=== PATIENT | male | born 1940 | race Caucasian/White ===

== ENCOUNTER 2020-02-18 14:02 | Outpatient (CLI) | payer MEDICARE, BC, SELFPAY ==
--- NOTE | ~2020-02-18 | CT_ITS ---
EXAMINATION: CTA chest DATE: 02/18/2020 14:41 INDICATION: Chest pain TECHNIQUE: Computed tomographic angiography (CTA) of the chest was performed without and with 100 mL Omnipque-350 intravenous contrast. Maximum intensity projection 3D-reconstructions of the aorta and o ther arteries were constructed by the technologist on a separate workstation. The dose-length product (DLP) was 860.12 mGy-cm. Automated exposure control and iterative reconstruction technique were empl oyed. COMPARISON: None. FINDINGS: There is calcified atherosclerosis of the aorta. No aortic dissection or aneurysm is identi fied. The pulmonary arteries are well-opacified. No pulmonary embolism is identified. The lungs are f ree of acute opacities. No pathologically enlarged thoracic lymph nodes are identified. The heart siz e is normal. A right internal jugular Port-A-Cath ends with its tip in the distal superior vena cava. There is no pleural effusion or pneumothorax. There are bridging osteophytes at multiple levels in t he spine, consistent with diffuse idiopathic skeletal hyperostosis (DISH). IMPRESSION: 1. Aortic atherosclerosis without aneurysm or dissection. 2. No pulmonary embolism. Reviewed, dictated and finalized at location A.
== END 2020-02-18 14:03 | disposition home or self-care (01) ==
PROVIDERS: PCP Student in an Organized Health Care Education/Training Program; Visit Provider Internal Medicine Hematology & Oncology
DX: R07.9 Chest pain, unspecified (principal); I70.0 Atherosclerosis of aorta
CPT/HCPCS: 71275; Q9967

== ENCOUNTER 2020-02-29 10:52 | Outpatient (CLI) | payer MEDICARE, BC, SELFPAY ==
[2020-02-29 11:22] LABS: Basophils Percent Auto 0.3 % (0.2-1.2); Eosinophils Absolute Auto 0.1 K/mm3 (0-0.3); Eosinophils Percent Auto 1.8 % (0-4.4); Hematocrit 38.3 % (42.0-52.0); Hemoglobin 12.6 g/dL (14.0-18.0); Immature Granulocyte Absolute 0.05 K/mm3 (0.00-0.031); Immature Granulocyte Percent A 0.8 % (0-0.5); Immature Platelet Fraction Pct 5.8 % (0.9-11.2); Lymphocytes Absolute Auto 0.64 K/mm3 (0.9-3.2); Lymphocytes Percent Auto 10.5 % (18.3-44.2); Mean Corpuscular HGB Conc 32.9 g/dl (32-36); Mean Corpuscular Hemoglobin 32.9 pg (26-34); Mean Platelet Volume 10.5 fl (7.4-10.4); Monocytes Absolute Auto 0.9 K/mm3 (0.1-0.6); Neutrophils Absolute Auto 4.4 K/mm3 (1.3-6.7); Neutrophils Percent Auto 71.6 % (45.5-73.1); Platelet Count Result 130 k/mm3 (150-375); Red Blood Count 3.83 M/mm3 (4.6-6.20); Red Cell Distribution Width 13.5 % (11.5-14.5); White Blood Count 6.1 K/mm3 (4.5-10.0)
[2020-02-29 12:15] LABS: Alanine Aminotransferase 25 U/L (4-50); Albumin Level 3.8 g/dL (3.5-5.1); Alkaline Phosphatase 71 U/L (38-126); Anion Gap 5 mmol/L (8-16); Aspartate Amino Transferase 24 U/L (17-59); Bilirubin,Total 0.6 mg/dL (0.2-1.3); Blood Urea Nitrogen 19 mg/dL (9-20); Calcium 9.6 mg/dL (8.4-10.2); Carbon Dioxide 28 mmol/L (22-30); Chloride 106 mmol/L (98-107); Estimated Glomerular Filt Rate 59; Glucose 109 mg/dL (75-110); Potassium 4.5 mmol/L (3.4-5.0); Sodium 139 mmol/L (137-145)
[2020-02-29 12:22] LABS: Immunoglobulin G 1736 mg/dL (700-1600)
[2020-02-29 12:30] LABS: Hemoglobin A1C 5.3 % (<5.7)
[2020-02-29 12:31] LABS: Immunoglobulin A < 40 mg/dL (70-400); Immunoglobulin M < 25 mg/dL (40-230)
[2020-03-03 22:19] LABS: Abnormal Protein Band 1 1.4 g/dL; Albumin 3.4 g/dL (3.8-4.8); Alpha 1 Globulin 0.3 g/dL (0.2-0.3); Alpha 2 Globulin 0.5 g/dL (0.5-0.9); Beta 1 Globulin 0.4 g/dL (0.4-0.6); Gamma Globulin 1.5 g/dL (0.8-1.7); Protein, Total 6.3 g/dL (6.1-8.1)
[2020-03-04 00:13] LABS: Lambda Light Chain 569.5 mg/L (5.7-26.3)
== END 2020-02-29 10:53 | disposition home or self-care (01) ==
PROVIDERS: PCP Student in an Organized Health Care Education/Training Program; Visit Provider Internal Medicine Hematology & Oncology
DX: R73.09 Other abnormal glucose (principal); C90.00 Multiple myeloma not having achieved remission
CPT/HCPCS: 36415; 80053; 82784; 83036; 83883; 84155; 84165; 85025; 85055; 86334

== ENCOUNTER 2020-06-09 09:22 | Outpatient (CLI) | payer MEDICARE, BC, SELFPAY ==
--- NOTE | 2020-06-09 | ECHO_ITS ---
Patient Info Name: Austin Soriano Age: 80 years : 1940 Gender: Male Ht: 70 in Wt: 190 lbs BSA: 2.08 m2 HR: 57 bpm BP: 164 / 82 mmHg Heart Rhythm: Sinus Rhythm Technical Quality: Good Exam Date: 06/09/2020 9:45 AM Exam Location: [facility] Pulmonary Patient Status: Outpatient Admit Date: 06/09/2020 Staff Ordering Physician: Abdi Bauman MD Material Specialist: Enrique Jeffrey RDCS, RT Attending Provider: Abdi Bauman MD Referring Physician: Chuck Lew MD; Exam Type: CA echo doppler color flow Study Info Indications C80.1 - Malignant (primary) neoplasm, unspecified Complete two-dimensional, color flow and Doppler transthoracic echocardiogram is performed. Strain analysis performed. Summary 1. Complete two-dimensional, color flow and Doppler transthoracic echocardiogram is performed. 2. Left ventricular systolic function is normal, estimated at 60-65%. 3. There is mildly increased left ventricular wall thickness. 4. The left ventricular diastolic function is grade I diastolic dysfunction. 5. Global longitudinal strain is normal at -19 %. 6. There is mild aortic valve stenosis with a peak velocity of 245 cm/s, mean gradient of 14 mmHg, and aortic valve area of 1.5 cm2. 7. There is moderate aortic valve calcification. 8. There is mild aortic valve regurgitation. 9. Unable to estimate PA systolic pressure due to poor spectral resolution of tricuspid regurgitant jet velocity. Left Ventricle Left ventricular chamber dimension is normal. Left ventricular systolic function is normal, estimated at 60-65%. There is mildly increased left ventricular wall thickness. The left ventricular diastolic function is grade I diastolic dysfunction. Global longitudinal strain is normal at -19 %. Right Ventricle Right ventricular chamber dimension is normal. Right ventricular systolic function is normal. Left Atria Left atrial chamber dimension is normal. Right Atria Right atrial chamber dimension is normal. Aortic Valve The aortic valve is probable trileaflet. There is mild aortic valve stenosis with a peak velocity of 245 cm/s, mean gradient of 14 mmHg, and aortic valve area of 1.5 cm2. There is mild aortic valve regurgitation. There is moderate aortic valve calcification. Pulmonic Valve The pulmonic valve is not well visualized. There is mild pulmonic regurgitation. Mitral Valve The mitral valve has normal leaflets. There is trace mitral valve regurgitation. The mitral valve annulus is mildly calcified. Tricuspid Valve The tricuspid valve leaflets are normal. There is trace tricuspid valve regurgitation. Unable to estimate PA systolic pressure due to poor spectral resolution of tricuspid regurgitant jet velocity. Pericardium/Pleural The pericardium appears normal. There is small pericardial effusion. Inferior Vena Cava Normal inferior vena cava with >50% collapse upon inspiration consistent with normal right atrial pressure, 5 mmHg. Aorta The aortic root size at the sinus of Valsalva is normal. There is mild aortic atherosclerosis. Left Ventricular Outflow Tract Name Value Normal LVOT 2D LVOT Diameter 2.3 cm LVOT Doppler
== END 2020-06-09 09:23 | disposition home or self-care (01) ==
PROVIDERS: PCP Student in an Organized Health Care Education/Training Program; Referring Provider Specialist; Visit Provider Internal Medicine Hematology & Oncology
DX: Z51.11 Encounter for antineoplastic chemotherapy (principal); I35.1 Nonrheumatic aortic (valve) insufficiency
CPT/HCPCS: 93306

== ENCOUNTER 2020-06-17 06:54 | Outpatient (NON) | payer MEDICARE, BC, SELFPAY ==
[2020-06-17 22:25] LABS: SARS-CoV-2 RNA PCR Negative
== END 2020-06-17 06:55 ==
LOC: ANHCOVIDDT 07:01
PROVIDERS: PCP Student in an Organized Health Care Education/Training Program; Visit Provider Student in an Organized Health Care Education/Training Program
DX: R06.02 Shortness of breath (principal); Z20.822 Contact with and (suspected) exposure to COVID-19
CPT/HCPCS: C9803; U0003; U0005

== ENCOUNTER 2020-07-06 10:40 | Outpatient (CLI) | payer MEDICARE, BC, SELFPAY | END 2020-07-06 10:41 | disposition home or self-care (01) | LOC: ANHLAB 10:45 | PROVIDERS: PCP Student in an Organized Health Care Education/Training Program; Visit Provider Student in an Organized Health Care Education/Training Program | DX: Z12.5 Encounter for screening for malignant neoplasm of prostate (principal) | CPT/HCPCS: 36415; 84153; G0103 ==

== ENCOUNTER 2020-07-18 14:57 | Outpatient (CLI) | payer MEDICARE, BC, SELFPAY ==
--- NOTE | ~2020-07-18 | XR_ITS ---
EXAMINATION: XR bone survey comp/metastic DATE: 07/18/2020 16:08 INDICATION: Myeloma not having achieved remission. TECHNIQUE: 29 views of a skeletal survey were obtained. COMPARISON: Skeletal survey 08/27/18 FINDINGS: There is a right internal jugular port with tip at superior cavoatrial junction. There are no lytic lesions of bone. IMPRESSION: 1. No evidence of multiple myeloma. Reviewed, dictated and finalized at location A. DYER
== END 2020-07-18 14:58 | disposition home or self-care (01) ==
LOC: ANHIMG 15:02
PROVIDERS: PCP Student in an Organized Health Care Education/Training Program; Visit Provider Internal Medicine Hematology & Oncology
DX: C90.00 Multiple myeloma not having achieved remission (principal)
CPT/HCPCS: 36415; 77075; 80048; 80053; 85025; 85055

== ENCOUNTER 2021-05-15 23:37 | Inpatient (IN) | payer MEDICARE, BC, SELFPAY ==
--- NOTE | ~2021-05-15 | XR_ITS ---
EXAMINATION: XR chest 1V portable DATE: 05/16/2021 04:47 INDICATION: COVID-19 pneumonia. Multiple myeloma. TECHNIQUE: A single frontal view of the chest was obtained. COMPARISON: Chest single view 03/05/2019, chest CT 02/18/2020 FINDINGS: There are airspace opacities in right mid and lower lung zones and left lower lung zone. No pleural effusion or pneumothorax. The heart size is normal. There is a right internal jugular port w ith tip at superior cavoatrial junction. IMPRESSION: 1. Airspace opacities in right mid and lower lung zones and left lower lung zone, consistent with COV ID-19 pneumonia. Reviewed, dictated and finalized at location A. ESTATE CLOSER IMPRESSION: 1. Airspace opacities in right mid and lower lung zones and left lower lung zon e, consistent with COVID-19 pneumonia.
--- NOTE | ~2021-05-15 | XR_ITS ---
EXAMINATION: XR chest 1V portable DATE: 05/23/2021 08:45 INDICATION: Fever TECHNIQUE: frontal view of the chest was obtained. COMPARISON: Chest radiograph and CT dated 05/21/2021 FINDINGS: No significant interval change in patchy airspace opacities throughout the right lung and in the left mid and lower lung zones consistent with pneumonia. Small right pleural effusion. No pneumothorax. T he cardiomediastinal silhouette is normal. Right internal jugular central venous port catheter with d istal tip at the caudal superior vena cava. IMPRESSION: 1. Unchanged patchy bilateral lung disease consistent with COVID pneumonia. 2. Small right pleural effusion. Reviewed, dictated and finalized at location A. FARMER
--- NOTE | ~2021-05-15 | XR_ITS ---
EXAMINATION: XR chest 1V portable DATE: 05/27/2021 07:07 INDICATION: Congestive heart failure. TECHNIQUE: A single frontal view of the chest was obtained. COMPARISON: Chest single view 05/26/2021, chest CT 05/21/2021 FINDINGS: There are airspace opacities in all lung zones bilaterally with relative sparing of left leila ng apex. There are small pleural effusions. No pneumothorax. The heart size is normal. There is a rig ht internal jugular port with tip at superior cavoatrial junction. IMPRESSION: 1. Stable diffuse lung disease, consistent with COVID-19 pneumonia. 2. Small pleural effusions. Reviewed, dictated and finalized at location A. T STOCKMAN
--- NOTE | ~2021-05-15 | US_ITS ---
US venous doppler [facility] DATE: 05/21/2021 08:58 INDICATION: Shortness of breath, chest pain TECHNIQUE: Real-time and color flow imaging and Doppler analysis of the lower extremity veins COMPARISON: None FINDINGS: The greater saphenous veins are patent. There is spontaneous and phasic flow and normal aug mentation and color flow signal and normal compression of the deep veins of both lower extremities. T he greater saphenous veins are patent. IMPRESSION: No evidence of deep venous thrombosis of the lower extremities Reviewed, dictated and finalized at Location A. Reviewed, dictated and finalized at location A. GE CONTROL ATTENDANT
--- NOTE | ~2021-05-15 | CT_ITS ---
EXAMINATION: CT brain wo con DATE: 05/17/2021 21:35 INDICATION: New onset confusion TECHNIQUE: Computed tomography (CT) of the head was performed without intravenous contrast. Sagittal and coronal reconstructions were performed. The mA was adjusted according to patient size. Iterative reconstruction technique was employed. The dose-length product was 681.00 mGy-cm. COMPARISON: None FINDINGS: No acute intracranial hemorrhage, acute infarction or abnormal extra axial fluid collection. There is moderate scattered white matter hypoattenuation consistent with chronic small vessel ischemic diseas e. Symmetric prominence of the sulci consistent with mild to moderate age-appropriate diffuse cerebra l volume loss. Ventricles are normal and symmetric. No mass/mass effect. Changes of bilateral intraoc ular lens replacement. Small right mastoid effusion. Mucosal thickening and scattered air-fluid level s throughout the paranasal sinuses. Intracranial calcified cerebral atherosclerosis is noted. IMPRESSION: 1. No acute intracranial process. 2. Age-related changes including mild to moderate diffuse volume loss and moderate scattered white ma tter hypoattenuation consistent with chronic small vessel ischemic disease. 3. Extensive sinus disease with multiple air-fluid levels throughout the paranasal sinuses. Correlate clinically for acute sinusitis. Reviewed, dictated and finalized at location . ICE DOG TRAINER IMPRESSION: 1. No acute intracranial process. 2. Age-related changes including mild to moderate diffuse volume loss and moder ate scattered white matter hypoattenuation consistent with chronic small vessel ischemic disease. 3. Extensive sinus disease with multiple air-fluid levels throughout the parana jeannette sinuses. Correlate clinically for acute sinusitis.
--- NOTE | ~2021-05-15 | CT_ITS ---
EXAMINATION: CTA chest PE protocol DATE: 05/21/2021 21:41 INDICATION: Shortness of breath. TECHNIQUE: Computed tomography angiography (CTA) of the chest was performed with 100 mL Omnipaque-350 intravenous contrast timed to evaluate the pulmonary arteries. Coronal maximum intensity projection 3D-reconstructions were created by the technologist. Automated exposure control and iterative reconst ruction technique were employed. The dose-length product was 568.57 mGy-cm. COMPARISON: Chest CT 02/18/2020, chest single view 05/21/2021 FINDINGS: There are patchy groundglass opacities and crazy paving involving all lobes. There are smal l pleural effusions. The heart size is normal. There are coronary artery calcifications. No pericardi al effusion. There is no pulmonary embolus. There is a right internal jugular port with tip in right atrium. There are bridging endplate osteophytes at multiple levels in the spine, consistent with diff use idiopathic skeletal hyperostosis (DISH). IMPRESSION: 1. No pulmonary embolus. 2. Diffuse lung disease, consistent with COVID-19 pneumonia. 3. Small pleural effusions. Reviewed, dictated and finalized at location B. CTOR OF HEAD START
--- NOTE | ~2021-05-15 | XR_ITS ---
EXAMINATION: XR chest 1V portable DATE: 05/26/2021 08:09 INDICATION: Shortness of breath. TECHNIQUE: A single frontal view of the chest was obtained. COMPARISON: Chest single view 05/23/2021 FINDINGS: There are airspace opacities in all lung zones bilaterally with relative sparing of left leila ng apex. No pleural effusion or pneumothorax. The heart size is normal. There is a right internal jug ular port with tip at superior cavoatrial junction. IMPRESSION: 1. Diffuse lung disease with mild worsening, consistent with COVID-19 pneumonia. Reviewed, dictated and finalized at location A. WORKER APPRENTICE IMPRESSION: 1. Diffuse lung disease with mild worsening, consistent with COVID-19 pneumonia .
--- NOTE | ~2021-05-15 | XR_ITS ---
XR chest 1V portable DATE: 05/21/2021 06:22 INDICATION: Pneumonia TECHNIQUE: Portable AP chest on 05/21/2021 at 0 614 and 0615 hours COMPARISON: 05/18/2021 portable AP chest FINDINGS: Prominent patchy consolidation is noted throughout the right lung and left mid and lower leila ng, increased in severity since 05/18/2021. Heart size appears normal. Aortic arch calcification. No pleural effusion is evident. Right Port-A-Cath catheter tip overlies the upper right atrium. IMPRESSION: Prominent bilateral pulmonary infiltrates, increased since 05/18/2021 Reviewed, dictated and finalized at location A. L FACE STONER AND POLISHER IMPRESSION: Prominent bilateral pulmonary infiltrates, increased since 05/18/20 21
--- NOTE | ~2021-05-15 | XR_ITS ---
EXAMINATION: XR chest 1V portable DATE: 05/18/2021 21:11 INDICATION: Chest pain TECHNIQUE: frontal view of the chest was obtained. COMPARISON: Chest radiograph dated 05/16/2021 FINDINGS: Right internal jugular central venous port catheter with distal tip at the caudal superior vena cava. Slight increase in patchy airspace opacities throughout the right lung relative early spurring the a pex and in the left mid and lower lung zones consistent with worsening COVID pneumonia. No pleural ef fusion or pneumothorax. The cardiomediastinal silhouette is normal. There are bridging osteophytes at multiple levels in the spine, consistent with diffuse idiopathic skeletal hyperostosis (DISH). IMPRESSION: 1. Mild interval progression in diffuse bilateral lung disease consistent with COVID pneumonia. Reviewed, dictated and finalized at location . UCE LABORER
[2021-05-15 23:40] VITALS: BP 125/61; PULSE 100; RESP 20; TEMP 36.9; O2SAT 96
[2021-05-16] VITALS (11 sets, daily range): BP systolic 96–151; BP diastolic 48–96; PULSE 70–125; RESP 14–20; TEMP 36.6–38.3; O2SAT 94–100; BMI 24.2
--- NOTE | 2021-05-16 04:36 | ED.FEVER ---
HPI - Fever General Chief Complaint: Fever Stated Complaint: fever, covid+ 05/08 Time Seen by Provider: 05/16/21 04:32 Source: patient Mode of arrival: ambulatory Limitations: no limitations History of Present Illness HPI Narrative: Patient is an 81-year-old male complaining of fever, cough, body aches, fatigue, shortness of breath x1 week but worse the past 2 days. Patient states that he was diagnosed with Covid 7 days ago. Related Data Home Medications Medication Instructions Recorded Confirmed acetaminophen 650 mg PO Q4H PRN 03/10/19 07/07/20 aspirin 81 mg PO DAILY 03/10/19 07/07/20 atorvastatin 40 mg PO DAILY 03/10/19 07/07/20 bortezomib 2.5 mg SUBCUT WEEKLY 03/10/19 07/07/20 cyclobenzaprine 10 mg PO Q12H PRN 03/10/19 07/07/20 denosumab 120 mg SUBCUT ONCE 03/10/19 07/07/20 diphenhydramine HCl 25 mg PO Q6H PRN 03/10/19 07/07/20 hydrocodone-acetaminophen 1 tablet PO Q6H PRN 03/10/19 07/07/20 metoprolol tartrate 25 mg PO BID 03/10/19 07/07/20 multivitamin with iron 1 tablet PO DAILY 03/10/19 07/07/20 omeprazole 40 mg PO DAILY 03/10/19 07/07/20 ondansetron 8 mg PO Q6H PRN 03/10/19 07/07/20 prednisolone acetate [Pred Forte] 2 drp OPHTHALMIC (EYE) Q12H 06/15/19 07/07/20 potassium chloride 20 meq PO DAILY 07/06/19 07/07/20 acyclovir 400 mg PO BID 09/14/19 07/07/20 sulfamethoxazole-trimethoprim 1 tablet PO Q12H 09/14/19 07/07/20 [Bactrim DS] Calcium 500 With D 500 mg BYMOUTH UD DOSE PK 01/05/20 07/07/20 alprazolam 0.25 mg PO BID PRN 01/05/20 07/07/20 tamsulosin 0.4 mg PO HS 03/09/20 07/07/20 Allergies Allergy/AdvReac Type Severity Reaction Status Date / Time lenalidomide Allergy Severe Rash Verified 05/16/21 05:21 Iodine and Iodide Containing Allergy Mild Itching Verified 05/16/21 05:21 Produc Review of Systems Review of Systems: All systems reviewed & are unremarkable except as noted in HPI and below Constitutional: Constitutional: Denies body ache(s), Denies chills, Denies excessive sweating, Denies fatigue, Denies headache(s), Denies lethargy, Denies malaise, Denies weakness and Denies weight loss Eyes: Eyes: Denies blurry vision, Denies change in vision and Denies loss of vision ENT: Denies dizziness, Denies ear discharge, Denies headache(s), Denies lip swelling, Denies epistaxis, Denies nasal congestion, Denies neck pain, Denies throat swelling and Denies tongue swelling Cardiovascular: Cardiovascular: Denies chest pain, Denies chest pain at rest, Denies chest pain with activity, Denies diaphoresis, Denies rapid heart rate, Denies edema, Denies irregular heart rhythm, Denies lightheadedness, Denies palpitations, Denies dyspnea and Denies dyspnea on exertion Respiratory: Respiratory: Denies chest congestion, Denies cough, Denies hemoptysis, Denies dyspnea and Denies dyspnea on exertion Gastrointestinal: Gastrointestinal: Denies abdominal pain, Denies melena, Denies hematochezia, Denies diarrhea, Denies nausea, Denies vomiting and Denies hematemesis Musculoskeletal: Musculoskeletal: Denies abnormal gait, Denies deformity, Denies joint swelling, Denies limited range of motion, Denies neck pain and Denies numbness Neurologic: Denies Abnormal speech present, Denies abnormal gait, Denies confusion, Denies dizziness, Denies headache(s), Denies focal weakness, Denies loss of vision, Denies numbness, Denies Other visual disturbances, Denies Sensory deficit (Neuro) and Denies weakness Psychiatric: Psychiatric: Denies confusion, Denies depression, Denies auditory hallucinations, Denies homicidal ideation and Denies suicidal ideation Endocrine: Endocrine: Denies cold intolerance, Denies excessive sweating, Denies fatigue, Denies heat intolerance and Denies palpitations Hematologic/Lymphatic: Hematologic/Lymphatic: Denies easy bleeding and Denies easy bruising Allergic/Immunologic: Allergic/Immunologic: Denies lip swelling, Denies throat swelling and Denies tongue swelling [facility] Family History Family History (Reviewed
[2021-05-16 05:22] LABS: Basophils Percent Auto 0.4 % (0.2-1.2); Eosinophils Absolute Auto 0.1 K/mm3 (0-0.3); Eosinophils Percent Auto 2.2 % (0-4.4); Hematocrit 29.6 % (42.0-52.0); Hemoglobin 9.5 g/dL (14.0-18.0); Immature Granulocyte Absolute 0.06 K/mm3 (0.00-0.031); Immature Granulocyte Percent A 1.1 % (0-0.5); Immature Platelet Fraction Pct 5.7 % (0.9-11.2); Lymphocytes Absolute Auto 1.69 K/mm3 (0.9-3.2); Lymphocytes Percent Auto 31.5 % (18.3-44.2); Mean Corpuscular HGB Conc 32.1 g/dl (32-36); Mean Corpuscular Hemoglobin 31.3 pg (26-34); Mean Corpuscular Volume 97.4 fl (80-100); Mean Platelet Volume 11.6 fl (7.4-10.4); Monocytes Absolute Auto 0.9 K/mm3 (0.1-0.6); Monocytes Percent Auto 17.2 % (2.6-8.5); Neutrophils Absolute Auto 2.6 K/mm3 (1.3-6.7); Neutrophils Percent Auto 47.6 % (45.5-73.1); Platelet Count Result 126 k/mm3 (150-375); Red Blood Count 3.04 M/mm3 (4.6-6.20); Red Cell Distribution Width 22.7 % (11.5-14.5); White Blood Count 5.4 K/mm3 (4.5-10.0)
[2021-05-16] MEDS: SODIUM CHLORIDE 0.9% IV 1,000 ML 999 ML IV CONT (05:22)
[2021-05-16 05:36] LABS: Add Urine Microscopic? YES; Appearance Urine Clear (Clear); Bilirubin Urine Negative (Negative); Blood Urine Negative (Negative); Color Urine Amber (Yellow); Glucose Urine UA Negative (Negative); Ketones Urine Negative (Negative); Leukocyte Esterase Ur Negative LEU/UL (Negative); Mucus Urine Rare /lpf; Nitrate Urine Negative (Negative); Protein Urine 3+ mg/dL (Negative); RBC Urine 0-2 /hpf (0-2); Specific Grav Ur 1.027 (1.001-1.035); Squamous Epithelial Cell Urine Rare /hpf (Few)
[2021-05-16 05:40] LABS: Lactic Acid Reflex 2.3 mmol/L (0.7-2.1)
[2021-05-16 05:41] LABS: Alanine Aminotransferase 24 U/L (4-50); Albumin Level 3.5 g/dL (3.5-5.1); Alkaline Phosphatase 90 U/L (38-126); Anion Gap 9 mmol/L (8-16); Aspartate Amino Transferase 41 U/L (17-59); Blood Urea Nitrogen 20 mg/dL (9-20); Calcium 7.9 mg/dL (8.4-10.2); Carbon Dioxide 22 mmol/L (22-30); Chloride 103 mmol/L (98-107); Estimated CRCL calculation 39 ml/min; Estimated Glomerular Filt Rate 49; Glucose 117 mg/dL (65-110); Sodium 134 mmol/L (137-145)
[2021-05-16 05:58] LABS: Anisocytosis 1+ (NORMAL); Burr Cells 1+ (NORMAL); Ovalocytes 2+ (NORMAL); Platelet Estimate Decreased (Adequate); Poikilocytosis 1+ (NORMAL)
[2021-05-16 06:00] LABS: Crenated RBC 1+ (NORMAL)
[2021-05-16] MEDS: ACETAMINOPHEN 325 MG TABLET 650 MG PO (07:21)
--- NOTE | 2021-05-16 07:54 | ADMGEN ---
This patient, Austin Soriano, was admitted to [address] [facility] Surg Room 312-01. Patient/family oriented to hospital policies and general routines including ID bracelet, bed and alarms, visiting hours, pain management, procedures, bathroom and other care routines, personal items, smoking policy, room service/diet, and visiting hours. Information on how to activate the Rapid Response Team has been discussed. Patient/Family are encouraged to report perceived risks to care and to ask questions if they do not understand what they are told or what they should do.
--- NOTE | 2021-05-16 08:08 | PM.IMHP ---
H&P: HPI History of Present Illness Date/Time: 05/16/21 08:08 Chief complaint: Fever. HPI: This is an 81-year-old gentleman with a past medical history including but not limited to COVID-19 pneumonia diagnosed 1 week ago status post admission at [facility] and discharged on 05/15/2021, multiple myeloma status post chemotherapy, hypertension, CAD status post stents, GERD who presented to the emergency department with complaints of chest tightness. The patient was in his usual state of health until 1 week ago. He was admitted to [facility] with a diagnosis of COVID-19 pneumonia. He never required any oxygen supplementation. He was treated with 5 day course of remdesivir with a loading does followed by 4 days of standard dose from May 08 through May 12. The patient complains of fever associated with cough, body aches, fatigue and shortness of breath for 1 week. While at [place] he was appropriately treated with remdesivir and exam it was on. He never required any oxygen supplementation. He was discharged yesterday but has not been feeling well at home so he returned to the emergency department. On arrival to the emergency department the patient is stable and afebrile with a temp of 36.9? C, pulse rate 100, respiration 20, blood pressure 125/61 and a pulse ox of 96% on room air. Basic labs were drawn. He CBC revealed a WBC of 5.4, hemoglobin 9.5, hematocrit 29.6 and a platelet count of 126. His chemistry shows a sodium of 134, potassium 4, chloride 103, bicarb 22, BUN 20, creatinine 1.4. Lactic acid was 2.3. Repeat level was 0.7. LFTs were within normal range with total bilirubin 1, AST 41, ALT 24, alkaline phosphatase 90. Total protein 6 and albumin 3.5. Patient was started on empiric antibiotic with cefepime single does. He underwent nebulizer treatment with albuterol and ipratropium. Lactated region was started at 125 cc/hour after 1 L bolus of normal saline. Hospital medicine service consulted for further management. Patient will be admitted for at least 2 midnights as inpatient. Chief Complaint: Fever, COVID-19. Review of Systems Review of Systems: All systems reviewed & are unremarkable except as noted in HPI and below PMFSH Family History Family History Sibling Family history of gastrointestinal disorder Cerebrovascular accident Malignant neoplasm of prostate Mother Cerebrovascular accident Family history of congestive heart failure Father Family history of congestive heart failure Social History Social History Smoking status: Never smoker Alcohol intake: never Substance use: never Spiritual care concerns: No Meds Home Medications and Allergies Home Medications Medication Instructions Recorded Confirmed Type acetaminophen 650 mg PO Q4H PRN 03/10/19 05/16/21 History aspirin 81 mg PO DAILY 03/10/19 05/16/21 History atorvastatin 40 mg PO DAILY 03/10/19 05/16/21 History cyclobenzaprine 10 mg PO TID PRN 03/10/19 05/16/21 History metoprolol tartrate 25 mg PO BID 03/10/19 05/16/21 History multivitamin with iron 1 tablet PO DAILY 03/10/19 05/16/21 History omeprazole 40 mg PO DAILY 03/10/19 05/16/21 History prednisolone acetate [Pred Forte] 2 drp OPHTHALMIC (EYE) Q12H 06/15/19 05/16/21 History acyclovir 400 mg PO TID 09/14/19 05/16/21 History sulfamethoxazole-trimethoprim 1 tablet PO QMWF 09/14/19 05/16/21 History [Bactrim DS] Calcium 500 With D 1,500 mg BYMOUTH TID 01/05/20 05/16/21 History alprazolam 0.25 mg PO TID PRN 01/05/20 05/16/21 History tamsulosin 0.4 mg PO HS 03/09/20 05/16/21 History benzonatate 100 mg PO TID 05/16/21 05/16/21 History gabapentin 300 mg PO TID 05/16/21 05/16/21 History lidocaine 1 patch TOPICAL Q12H 05/16/21 05/16/21 History lidocaine-prilocaine 1 applic TOPICAL DAILY 05/16/21 05/16/21 History loperamide [Imodium] 2 mg PO QID PRN 05/16/21 05/16/21 History ondansetron 4 mg PO TID
[2021-05-16 08:18] LABS: Reflex Lactic Acid Yes or No Add Lactic
[2021-05-16] MEDS: LACTATED RINGERS 1,000 ML 125 ML IV CONT ×3 (08:24→22:26)
[2021-05-16 10:50] LABS: Lactic Acid 0.7 mmol/L (0.7-2.1)
[2021-05-16] MEDS: BENZONATATE 100 MG CAPSULE PO (15:54)
[2021-05-16] MEDS: GABAPENTIN 300 MG CAPSULE PO ×2 (15:54→22:25)
[2021-05-16] MEDS: ACYCLOVIR 400 MG TABLET PO (15:54)
[2021-05-16] MEDS: ALBUTEROL SULFATE NEB 2.5 MG/0.5 ML INH 5 MG INHALATION (21:41)
[2021-05-16] MEDS: IPRATROPIUM BR 0.02% INH SOLN 0.5 MG/2.5 ML VIAL INHALATION (21:43)
[2021-05-16] MEDS: prednisoLONE ACETATE 1% OPHTH 5 ML 2 DROP EACH EYE (22:25)
[2021-05-16] MEDS: TAMSULOSIN HCL 0.4 MG CAPSULE PO (22:26)
[2021-05-17] VITALS (12 sets, daily range): BP systolic 111–174; BP diastolic 43–77; PULSE 68–131; RESP 16–22; TEMP 36.6–39.4; O2SAT 94–98
[2021-05-17] MEDS: ALBUTEROL SULFATE NEB 2.5 MG/0.5 ML INH 5 MG INHALATION ×3 (02:54→21:30)
[2021-05-17] MEDS: IPRATROPIUM BR 0.02% INH SOLN 0.5 MG/2.5 ML VIAL INHALATION ×3 (02:54→21:30)
[2021-05-17] MEDS: GABAPENTIN 300 MG CAPSULE PO ×3 (05:57→21:17)
[2021-05-17] MEDS: LACTATED RINGERS 1,000 ML 125 ML IV CONT ×2 (06:01→17:37)
[2021-05-17] MEDS: PANTOPRAZOLE 40 MG TABLET PO (09:24)
[2021-05-17] MEDS: BENZONATATE 100 MG CAPSULE PO ×3 (09:24→17:38)
[2021-05-17] MEDS: ATORVASTATIN 40 MG TABLET PO (09:24)
[2021-05-17] MEDS: THERAPEUTIC MULTIVITAMINS/MINERALS TAB (*BKC) 1 TABLET PO (09:24)
[2021-05-17] MEDS: prednisoLONE ACETATE 1% OPHTH 5 ML 2 DROP EACH EYE ×2 (09:24→21:16)
[2021-05-17] MEDS: ACYCLOVIR 400 MG TABLET PO ×3 (09:24→17:38)
[2021-05-17] MEDS: ASPIRIN 81 MG CHEWABLE TABLET PO (09:25)
--- NOTE | 2021-05-17 12:30 | PM.IMPN ---
Progress Note: A&P Assessment and Plan (1) COVID-19: Code(s): U07.1 - COVID-19 Status: Acute Assessment and Plan: Subacute COVID-19 infection, previously treated. 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 There is no indication for remdesivir and this patient are unclear. Patient is breathing comfortably on room air. He reports chest tightness. There may be prolong symptoms in patient recover in with COVID-19 pneumonia lasting 4 days to weeks or even months. Will encourage incentive spirometry. Will perform albuterol and ipratropium nebulization. Currently there is no indication for remdesivir and there would be no benefit from stay. (2) Pneumonia: Qualifiers: Laterality: unspecified laterality Lung location: unspecified part of lung Pneumonia type: due to unspecified organism Qualified Code(s): J18.9 - Pneumonia, unspecified organism Code(s): J18.9 - Pneumonia, unspecified organism Status: Acute Assessment and Plan: Status post treatment with remdesivir. Currently breathing comfortably on room air. Start augmentin. Bilateral opacities on chest x-ray. (3) Multiple myeloma not having achieved remission: Code(s): C90.00 - Multiple myeloma not having achieved remission Status: Acute Assessment and Plan: Status post chemotherapy with bortezomib. (4) Bone metastasis: Code(s): C79.51 - Secondary malignant neoplasm of bone Status: Acute Assessment and Plan: Pain management as stated. (5) Acute diarrhea: Code(s): R19.7 - Diarrhea, unspecified Status: Acute Assessment and Plan: A patient of the diarrhea may have been a recurrent issue. Sensitive due to recent antibiotic intake. Stop cefepime. Subjective Date/time seen: 05/17/21 10:59 S: Patient was seen and examined at the bedside. He reports diarrhea. No the toes there may be chronic. He had a fever overnight but is no longer febrile today. Patient remains breathing comfortably on room air. Reports improvement of chest tightness. Review of Systems Review of Systems: All systems reviewed & are unremarkable except as noted in HPI and below Exam Const: General: comfortable and no acute distress HENMT: General nose exam: no epistaxis Mouth: Yes moist mucous membranes Eyes: General: appearance normal, both eyes and all related structures Pupils: Equal, round and reactive pupils present EOM: EOMs intact bilaterally Neck: Neck: supple and no JVD Resp: Effort & Inspection: normal respiratory effort Auscultation: clear to auscultation bilaterally, no crackles, no rales and no rhonchi Cardio: Rate: regular rate and not bradycardic Rhythm: regular rhythm Heart sounds: no gallops, no murmurs and no rubs GI: Inspection: non-distended : Other: Deferred. Skin: General skin exam: normal color and no rashes or lesions noted Neuro: Cranial nerves: Yes Equal, round and reactive pupils present Cognition (Neuro): normal cognition Speech: normal speech Extrem: Other: No edema cyanosis or clubbing. Psych: Mental Status: mental status grossly normal Affect: normal affect Objective Data Vital Signs Vital Signs: Vital Signs - 24 hr 05/16/21 16:00 05/16/21 20:00 05/16/21 20:05 Temperature 98.6 F 98.6 F Pulse Rate 77 70 70 Respiratory Rate 15 18 18 Blood Pressure 126/68 130/55 L Pulse Oximetry 95 96 95 05/16/21 21:44 05/16/21 21:50 05/17/21 00:00 Temperature 98.4 F Pulse Rate 87 68 Respiratory Rate 16 Blood Pressure 126/61 Pulse Oximetry 95 98 05/17/21 04:00 05/17/21 08:00 05/17/21 10:03 Temperature 97.8 F 98.6 F Pulse Rate 108 H 80 84 Respiratory Rate 16 18 18 Blood Pressure 111/51 L 115/55 L Pulse Oximetry 96 95 05/17/21 10:13 05/17/21 12:00 Temperature 98.1 F Pulse Rate 85 88 Respiratory Rate 18 18 Blood Pressure 111/43 L Pulse Oximetry 94 96 Intake/Output Intake/Output: Intake & Output 05/14/21 12
[2021-05-17] MEDS: AMOXICILLIN/CLAVULANATE K 875-125 MG TAB 1 TABLET PO ×2 (14:16→21:16)
--- NOTE | 2021-05-17 16:02 | PCRCNOTE ---
Window of time for administration has passed. See next scheduled administration.
--- NOTE | 2021-05-17 20:26 | ECG_ITS ---
Measurements Intervals [place] Rate: 125 P: 56 [place]: 146 QRS: -7 QRSD: 92 T: 65 QT: 312 QTc: 451 Interpretive Statements SINUS TACHYCARDIA INCOMPLETE RIGHT BUNDLE BRANCH BLOCK BORDERLINE ST-T WAVE ABNORMALITY- ANTERIOR LEADS ABNORMAL ECG Electronically Signed On 05-18-2021 16:50:16 COMMUNITY DEVELOPMENT SPECIALIST by Fred Mcdonough D.O.
[2021-05-17 20:55] LABS: Alveolar/Arterial O2 Gradient 47.8 mmHg; Base Excess ABG -1.2 mEq/l (+/-2.0); Fractional Inspired Oxygen 21 %; HCO3 ABG 20.1 mEq/l (22.0-26.0); Oxygen Content ABG 14.9 %vol (16.0-22.0); Oxygen Saturation ABG 96.5 % (95.0-100.0); Oxyhemoglobin 94.2 % THb (90.0-100.0); PO2 ABG 73.2 mmHg (80.0-100.0); PO2 FiO2 Ratio Arterial Blood 3.49 %; Total Hemoglobin 11.2 g/dL (12.0-18.0)
[2021-05-17 20:58] LABS: Site Drawn RIGHT RADIAL
[2021-05-17 20:59] LABS: Device ROOM AIR; Modified Allen's Test Pass
[2021-05-17] MEDS: hydrALAZINE HCL 20 MG/ML VIAL 10 MG IV PUSH (21:03)
[2021-05-18] VITALS (18 sets, daily range): BP systolic 111–132; BP diastolic 57–72; PULSE 83–142; RESP 16–28; TEMP 36.3–39.4; O2SAT 93–95
[2021-05-18] MEDS: TAMSULOSIN HCL 0.4 MG CAPSULE PO ×2 (01:40→20:35)
[2021-05-18] MEDS: ACETAMINOPHEN 325 MG TABLET 650 MG PO ×4 (01:40→20:34)
[2021-05-18] MEDS: ALBUTEROL SULFATE NEB 2.5 MG/0.5 ML INH 5 MG INHALATION ×3 (02:21→20:00)
[2021-05-18] MEDS: IPRATROPIUM BR 0.02% INH SOLN 0.5 MG/2.5 ML VIAL INHALATION ×3 (02:21→20:00)
[2021-05-18] MEDS: LACTATED RINGERS 1,000 ML 125 ML IV CONT ×3 (03:03→20:33)
[2021-05-18] MEDS: GABAPENTIN 300 MG CAPSULE PO ×3 (05:46→22:40)
--- NOTE | 2021-05-18 08:36 | PC.NURSE ---
1948 Pt had a temp of 102.9 HR in the 130s & confused only oriented to self. rapid response called.
--- NOTE | 2021-05-18 10:57 | PCRCNOTE ---
Window of time for administration has passed. See next scheduled administration.
[2021-05-18] MEDS: prednisoLONE ACETATE 1% OPHTH 5 ML 2 DROP EACH EYE ×2 (11:06→20:35)
[2021-05-18] MEDS: ATORVASTATIN 40 MG TABLET PO (11:07)
[2021-05-18] MEDS: PANTOPRAZOLE 40 MG TABLET PO (11:07)
[2021-05-18] MEDS: AMOXICILLIN/CLAVULANATE K 875-125 MG TAB 1 TABLET PO ×2 (11:07→20:36)
[2021-05-18] MEDS: BENZONATATE 100 MG CAPSULE PO ×3 (11:07→18:34)
[2021-05-18] MEDS: ACYCLOVIR 400 MG TABLET PO ×3 (11:07→18:34)
[2021-05-18] MEDS: THERAPEUTIC MULTIVITAMINS/MINERALS TAB (*BKC) 1 TABLET PO (11:08)
[2021-05-18] MEDS: ASPIRIN 81 MG CHEWABLE TABLET PO (11:08)
--- NOTE | 2021-05-18 15:20 | PCOTNOTE ---
Per PT, RN advised not to see patient this am due to decline in medical status. Over night, patient presented with fever, confusion, and rapid response was called. Pt not seen for this reason.
--- NOTE | 2021-05-18 17:33 | PM.IMPN ---
Progress Note: A&P Assessment and Plan (1) COVID-19: Code(s): U07.1 - COVID-19 Status: Acute Assessment and Plan: Long haul COVID. Subacute COVID-19 infection, previously treated. 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 There is no indication for remdesivir and this patient are unclear. Patient is breathing comfortably on room air. He reports chest tightness. There may be prolong symptoms in patient recover in with COVID-19 pneumonia lasting 4 days to weeks or even months. Will encourage incentive spirometry. Will perform albuterol and ipratropium nebulization. Currently there is no indication for remdesivir and there would be no benefit from steroids. Continue symptomatic management with Tylenol p.r.n. and nebulization. (2) Pneumonia: Qualifiers: Laterality: unspecified laterality Lung location: unspecified part of lung Pneumonia type: due to unspecified organism Qualified Code(s): J18.9 - Pneumonia, unspecified organism Code(s): J18.9 - Pneumonia, unspecified organism Status: Acute Assessment and Plan: Status post treatment with remdesivir. Currently breathing comfortably on room air. Continue augmentin. Bilateral opacities on chest x-ray. Cefepime was stopped due to diarrhea. (3) Multiple myeloma not having achieved remission: Code(s): C90.00 - Multiple myeloma not having achieved remission Status: Acute Assessment and Plan: Status post chemotherapy with bortezomib. (4) Bone metastasis: Code(s): C79.51 - Secondary malignant neoplasm of bone Status: Acute Assessment and Plan: Pain management as stated. (5) Acute diarrhea: Code(s): R19.7 - Diarrhea, unspecified Status: Acute Assessment and Plan: Acute diarrhea may be recurrent issues per his daughter. Stop cefepime. Follow-up CT. Subjective Date/time seen: 05/18/21 16:33 S: The patient examined at the bedside. You reports persistent diarrhea and fever, despite Tylenol. C diff was ordered. IV antibiotics were stopped. Review of Systems Review of Systems: All systems reviewed & are unremarkable except as noted in HPI and below Constitutional: Constitutional: Reports fever(s) Gastrointestinal: Gastrointestinal: Reports diarrhea Exam Const: General: comfortable and no acute distress HENMT: General nose exam: no epistaxis Mouth: Yes moist mucous membranes Eyes: General: appearance normal, both eyes and all related structures Pupils: Equal, round and reactive pupils present EOM: EOMs intact bilaterally Neck: Neck: supple and no JVD Resp: Effort & Inspection: normal respiratory effort Auscultation: clear to auscultation bilaterally, no crackles, no rales and no rhonchi Cardio: Rate: regular rate and not bradycardic Rhythm: regular rhythm Heart sounds: no gallops, no murmurs and no rubs GI: Inspection: non-distended : Other: Deferred. Skin: General skin exam: normal color and no rashes or lesions noted Neuro: Cranial nerves: Yes Equal, round and reactive pupils present Cognition (Neuro): normal cognition Speech: normal speech Extrem: Other: No edema cyanosis or clubbing. Psych: Mental Status: mental status grossly normal Affect: normal affect Objective Data Vital Signs Vital Signs: Vital Signs - 24 hr 05/17/21 19:50 05/17/21 20:00 05/17/21 21:00 Temperature 102.9 F H Pulse Rate 120 H 131 H 88 Respiratory Rate 20 20 18 Blood Pressure 174/77 H Pulse Oximetry 95 95 05/17/21 21:10 05/17/21 21:59 05/18/21 02:25 Temperature 102.9 F H Pulse Rate 88 131 H 88 Respiratory Rate 18 20 18 Blood Pressure 174/77 H Pulse Oximetry 95 05/18/21 02:35 05/18/21 05:37 05/18/21 08:00 Temperature 101.0 F H 98.6 F Pulse Rate 88 120 H 104 H Respiratory Rate 18 20 20 Blood Pressure 111/59 L 112/64 Pulse Oximetry 95 94 05/18/21 12:00 05/18/21 13:08 05/18/21 13:16 Temperature 97.4 F L Pulse Rate 112 H 86 83
--- NOTE | 2021-05-18 20:45 | ECG_ITS ---
Measurements Intervals [place] Rate: 119 P: 62 [place]: 161 QRS: -44 QRSD: 93 T: 32 QT: 314 QTc: 443 Interpretive Statements SINUS TACHYCARDIA VENTRICULAR PREMATURE COMPLEX LEFT AXIS DEVIATION INCOMPLETE RIGHT BUNDLE BRANCH BLOCK BASELINE ARTIFACT- V1-V2 ABNORMAL ECG Electronically Signed On 05-19-2021 5:37:56 FLOW NURSE by Fred Mcdonough D.O.
[2021-05-18] MEDS: NITROGLYCERIN SL 0.4 MG TABLET SUBLINGUAL (21:01)
[2021-05-18] MEDS: FUROSEMIDE INJ 40 MG/4 ML VIAL IV PUSH (21:01)
[2021-05-18] MEDS: MORPHINE SULFATE (*CRX) 2 MG/ML INJ 1 MG IV PUSH (21:01)
[2021-05-18] MEDS: METOPROLOL TARTRATE 25 MG TABLET PO (22:40)
[2021-05-18] MEDS: ACETAMINOPHEN 650 MG SUPPOSITORY RECTAL (22:40)
[2021-05-19] VITALS (19 sets, daily range): BP systolic 118–151; BP diastolic 55–83; PULSE 101–145; RESP 20–24; TEMP 36.6–39.8; O2SAT 91–93
[2021-05-19 01:19] LABS: Troponin I 0.988 ng/mL (0.000-0.034)
[2021-05-19] MEDS: ALBUTEROL SULFATE NEB 2.5 MG/0.5 ML INH 5 MG INHALATION ×2 (02:50→08:51)
[2021-05-19] MEDS: IPRATROPIUM BR 0.02% INH SOLN 0.5 MG/2.5 ML VIAL INHALATION ×2 (02:51→08:51)
[2021-05-19] MEDS: ACETAMINOPHEN 325 MG TABLET 650 MG PO ×3 (03:52→23:28)
[2021-05-19 04:35] LABS: Troponin I 0.842 ng/mL (0.000-0.034)
[2021-05-19] MEDS: METOPROLOL TARTRATE 25 MG TABLET PO ×2 (05:11→23:53)
[2021-05-19] MEDS: GABAPENTIN 300 MG CAPSULE PO ×3 (05:11→22:32)
[2021-05-19] MEDS: ATORVASTATIN 40 MG TABLET PO (08:45)
[2021-05-19] MEDS: PANTOPRAZOLE 40 MG TABLET PO (08:46)
[2021-05-19] MEDS: ACYCLOVIR 400 MG TABLET PO ×3 (08:46→17:17)
[2021-05-19] MEDS: BENZONATATE 100 MG CAPSULE PO ×3 (08:46→17:17)
[2021-05-19] MEDS: AMOXICILLIN/CLAVULANATE K 875-125 MG TAB 1 TABLET PO ×2 (08:46→22:33)
[2021-05-19] MEDS: THERAPEUTIC MULTIVITAMINS/MINERALS TAB (*BKC) 1 TABLET PO (08:47)
[2021-05-19] MEDS: LIDOCAINE 5% PATCH 1 PATCH TOPICAL (08:47)
[2021-05-19] MEDS: ASPIRIN 81 MG CHEWABLE TABLET PO (08:47)
--- NOTE | 2021-05-19 11:33 | PCOTNOTE ---
On 05/19/21, the student, Yomaira Edmonds, provided care and completed [facility] documentation on this patient. I have reviewed the student's documentation and agree with the findings.
--- NOTE | 2021-05-19 15:13 | PM.IMPN ---
Progress Note: A&P Assessment and Plan (1) COVID-19: Code(s): U07.1 - COVID-19 Status: Acute Assessment and Plan: Long haul COVID. Subacute COVID-19 infection, previously treated. 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 There is no indication for remdesivir and this patient are unclear. Patient is breathing comfortably on room air. He reports chest tightness. There may be prolong symptoms in patient recover in with COVID-19 pneumonia lasting 4 days to weeks or even months. Will encourage incentive spirometry. Will perform albuterol and ipratropium nebulization. Currently there is no indication for remdesivir and there would be no benefit from steroids. Continue symptomatic management with Tylenol p.r.n. and nebulization. (2) Pneumonia: Qualifiers: Laterality: unspecified laterality Lung location: unspecified part of lung Pneumonia type: due to unspecified organism Qualified Code(s): J18.9 - Pneumonia, unspecified organism Code(s): J18.9 - Pneumonia, unspecified organism Status: Acute Assessment and Plan: Status post treatment with remdesivir. Currently breathing comfortably on room air. Continue augmentin. Bilateral opacities on chest x-ray. Cefepime was stopped due to diarrhea. (3) Multiple myeloma not having achieved remission: Code(s): C90.00 - Multiple myeloma not having achieved remission Status: Acute Assessment and Plan: Status post chemotherapy with bortezomib. (4) Bone metastasis: Code(s): C79.51 - Secondary malignant neoplasm of bone Status: Acute Assessment and Plan: Pain management as stated. (5) Acute diarrhea: Code(s): R19.7 - Diarrhea, unspecified Status: Acute Assessment and Plan: C diff negative Additional Plan 05/19/2021 Patient is slightly less symptomatic today. Will continue current plan of care and treatment. Possible discharge in next couple of days. Subjective Date/time seen: 05/19/21 15:13 Patient was seen during the morning rounds today. Patient is feeling slightly better. Decreased shortness of breath, no chest pain. Diarrhea is slightly better. No vomiting. Review of Systems Review of Systems: All systems reviewed & are unremarkable except as noted in HPI and below Constitutional: Constitutional: Reports fever(s) Gastrointestinal: Gastrointestinal: Reports diarrhea Exam Const: General: comfortable and no acute distress HENMT: General nose exam: no epistaxis Mouth: Yes moist mucous membranes Eyes: General: appearance normal, both eyes and all related structures Pupils: Equal, round and reactive pupils present EOM: EOMs intact bilaterally Neck: Neck: supple and no JVD Resp: Effort & Inspection: normal respiratory effort Auscultation: clear to auscultation bilaterally, no crackles, no rales and no rhonchi Cardio: Rate: regular rate and not bradycardic Rhythm: regular rhythm Heart sounds: no gallops, no murmurs and no rubs GI: Inspection: non-distended : Other: Deferred. Skin: General skin exam: normal color and no rashes or lesions noted Neuro: Cranial nerves: Yes Equal, round and reactive pupils present Cognition (Neuro): normal cognition Speech: normal speech Extrem: Other: No edema cyanosis or clubbing. Psych: Mental Status: mental status grossly normal Affect: normal affect Objective Data Vital Signs Vital Signs: Vital Signs - 24 hr 05/18/21 15:47 05/18/21 16:00 05/18/21 16:45 Temperature 37.8 C H 38.5 C H 37.7 C H Pulse Rate 104 H Respiratory Rate 16 Blood Pressure 116/57 L Pulse Oximetry 93 05/18/21 20:00 05/18/21 20:10 05/18/21 20:15 Temperature Pulse Rate 111 H 115 H Respiratory Rate 26 H 28 H Blood Pressure Pulse Oximetry 93 05/18/21 20:34 05/18/21 21:30 05/18/21 21:48 Temperature 39.2 C H 39.4 C H 39.4 C H Pulse Rate 113 H Respiratory Rate 20 Blood Pressure 122/64 Pulse Oximetry 93
--- NOTE | 2021-05-19 17:38 | PCRCNOTE ---
Window of time for administration has passed. See next scheduled administration.
--- NOTE | 2021-05-19 22:09 | PCRCNOTE ---
past scheduled time window, see next available administration.
[2021-05-19] MEDS: prednisoLONE ACETATE 1% OPHTH 5 ML 2 DROP EACH EYE (22:32)
[2021-05-19] MEDS: TAMSULOSIN HCL 0.4 MG CAPSULE PO (22:32)
[2021-05-19] MEDS: HEPARIN SODIUM 5,000 UNITS/ML VIAL 5000 UNITS SUB-Q (22:33)
[2021-05-19] MEDS: CYCLOBENZAPRINE HCL 10 MG TABLET PO (22:33)
[2021-05-19] MEDS: ALPRAZolam (*CRX) 0.25 MG TABLET PO (22:33)
[2021-05-20] VITALS (18 sets, daily range): BP systolic 115–140; BP diastolic 42–75; PULSE 84–135; RESP 16–21; TEMP 36.3–38.8; O2SAT 90–97
--- NOTE | 2021-05-20 | ECHO_ITS ---
Patient Info Name: Austin Soriano Age: 81 years : 1940 Gender: Male Ht: 70 in Wt: 168 lbs BSA: 1.95 m2 HR: 121 bpm BP: 123 / 57 mmHg Heart Rhythm: Tachycardia Technical Quality: Fair Exam Date: 05/20/2021 10:02 AM Exam Location: [facility] Patient Status: Inpatient Admit Date: 05/16/2021 Staff Ordering Physician: James Sharma MD Belting Inspector: Faye Damon RDCS Attending Provider: Lakshmi Avendano DO Referring Physician: Edith HESTER; Exam Type: CA echo doppler color flow Study Info Indications - svt Complete two-dimensional, color flow and Doppler transthoracic echocardiogram is performed. Summary 1. Complete two-dimensional, color flow and Doppler transthoracic echocardiogram is performed. 2. Left ventricular chamber dimension is mildly enlarged. 3. Left ventricular systolic function is normal, estimated at 60-65%. 4. There is mildly increased left ventricular wall thickness. 5. The left ventricular diastolic function is abnormal. 6. The basal inferior wall, basal inferolateral wall, and mid inferolateral wall are hypokinetic. 7. There is mild aortic valve stenosis with a peak velocity of 255 cm/s, mean gradient of 12 mmHg, and aortic valve area of 1.6 cm2. 8. There is mild aortic valve regurgitation. 9. There is moderate aortic valve calcification. 10. There is mild mitral valve regurgitation. 11. There is mild tricuspid valve regurgitation. Left Ventricle Left ventricular chamber dimension is mildly enlarged. Left ventricular systolic function is normal, estimated at 60-65%. There is mildly increased left ventricular wall thickness. The left ventricular diastolic function is abnormal. The basal inferior wall, basal inferolateral wall, and mid inferolateral wall are hypokinetic. All other engel appear normal. Right Ventricle Right ventricular chamber dimension is normal. Right ventricular systolic function is normal. Left Atria Left atrial chamber dimension is normal. Right Atria Right atrial chamber dimension is normal. Atrial Septum Intact interatrial septum visualized by color flow imaging. Aortic Valve The aortic valve is trileaflet. There is mild aortic valve stenosis with a peak velocity of 255 cm/s, mean gradient of 12 mmHg, and aortic valve area of 1.6 cm2. There is mild aortic valve regurgitation. There is moderate aortic valve calcification. Pulmonic Valve The pulmonic valve is normal. There is no pulmonic valve stenosis. There is trace pulmonic regurgitation. Mitral Valve The mitral valve has normal leaflets. There is no mitral valve stenosis. There is mild mitral valve regurgitation. Tricuspid Valve The tricuspid valve leaflets are normal. There is no significant tricuspid valve stenosis. There is mild tricuspid valve regurgitation. No pulmonary hypertension, estimated pulmonary arterial systolic pressure is 24 mmHg. Pericardium/Pleural The pericardium appears normal. There is small pericardial effusion. Aorta The aortic root size at the sinus of Valsalva is normal. The prox ascending aorta size is normal. Left Ventricular Outflow Tract Name Value Normal LVOT 2D LVOT Diameter 2.2 cm
[2021-05-20] MEDS: IPRATROPIUM BR 0.02% INH SOLN 0.5 MG/2.5 ML VIAL INHALATION ×3 (02:27→13:33)
[2021-05-20] MEDS: ALBUTEROL SULFATE NEB 2.5 MG/0.5 ML INH 5 MG INHALATION ×3 (02:27→13:33)
[2021-05-20 06:05] LABS: Troponin I 0.457 ng/mL (0.000-0.034)
[2021-05-20] MEDS: GABAPENTIN 300 MG CAPSULE PO ×3 (06:14→21:46)
--- NOTE | 2021-05-20 07:33 | PM.IMPN ---
Progress Note: A&P Assessment and Plan (1) COVID-19: Code(s): U07.1 - COVID-19 Status: Acute Assessment and Plan: Long haul COVID. Subacute COVID-19 infection, previously treated. 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 There is no indication for remdesivir and this patient are unclear. Patient is breathing comfortably on room air. He reports chest tightness. There may be prolong symptoms in patient recover in with COVID-19 pneumonia lasting 4 days to weeks or even months. Will encourage incentive spirometry. Will perform albuterol and ipratropium nebulization. Currently there is no indication for remdesivir and there would be no benefit from steroids. Continue symptomatic management with Tylenol p.r.n. and nebulization. (2) Pneumonia: Qualifiers: Laterality: unspecified laterality Lung location: unspecified part of lung Pneumonia type: due to unspecified organism Qualified Code(s): J18.9 - Pneumonia, unspecified organism Code(s): J18.9 - Pneumonia, unspecified organism Status: Acute Assessment and Plan: Status post treatment with remdesivir. Currently breathing comfortably on room air. Continue augmentin. Bilateral opacities on chest x-ray. Cefepime was stopped due to diarrhea. (3) Multiple myeloma not having achieved remission: Code(s): C90.00 - Multiple myeloma not having achieved remission Status: Acute Assessment and Plan: Status post chemotherapy with bortezomib. (4) Bone metastasis: Code(s): C79.51 - Secondary malignant neoplasm of bone Status: Acute Assessment and Plan: Pain management as stated. (5) Acute diarrhea: Code(s): R19.7 - Diarrhea, unspecified Status: Acute Assessment and Plan: C diff negative (6) Abnormal cardiac enzyme level: Code(s): R74.8 - Abnormal levels of other serum enzymes Status: Acute Assessment and Plan: Trending down words. Will consult Cardiology for discharge. 2D echo ordered Additional Plan 05/19/2021 Patient is slightly less symptomatic today. Will continue current plan of care and treatment. Possible discharge in next couple of days. 05/20/2021 Patient is clinically improving. Patient troponin is still high but trending downward. We will consult Cardiology and 2D echo will discharge. If stays okay will go home tomorrow. Subjective Date/time seen: 05/20/21 07:33 Patient was seen during the morning rounds today. Patient is feeling better today. No shortness of breath or chest pain. Diarrhea is better. Mood stable. Review of Systems Review of Systems: All systems reviewed & are unremarkable except as noted in HPI and below Constitutional: Constitutional: Reports fever(s) Gastrointestinal: Gastrointestinal: Reports diarrhea Exam Const: General: comfortable and no acute distress HENMT: General nose exam: no epistaxis Mouth: Yes moist mucous membranes Eyes: General: appearance normal, both eyes and all related structures Pupils: Equal, round and reactive pupils present EOM: EOMs intact bilaterally Neck: Neck: supple and no JVD Resp: Effort & Inspection: normal respiratory effort Auscultation: clear to auscultation bilaterally, no crackles, no rales and no rhonchi Cardio: Rate: regular rate and not bradycardic Rhythm: regular rhythm Heart sounds: no gallops, no murmurs and no rubs GI: Inspection: non-distended : Other: Deferred. Skin: General skin exam: normal color and no rashes or lesions noted Neuro: Cranial nerves: Yes Equal, round and reactive pupils present Cognition (Neuro): normal cognition Speech: normal speech Extrem: Other: No edema cyanosis or clubbing. Psych: Mental Status: mental status grossly normal Affect: normal affect Objective Data Vital Signs Vital Signs: Vital Signs - 24 hr 05/19/21 08:00 05/19/21 08:52 05/19/21 09:04 Temperature 36.6 C Pulse Rate 120 H 116 H 112 H Respiratory
[2021-05-20] MEDS: ALPRAZolam (*CRX) 0.25 MG TABLET PO (09:16)
[2021-05-20] MEDS: BENZONATATE 100 MG CAPSULE PO ×3 (09:17→16:54)
[2021-05-20] MEDS: ATORVASTATIN 40 MG TABLET PO (09:17)
[2021-05-20] MEDS: ASPIRIN 81 MG CHEWABLE TABLET PO (09:18)
[2021-05-20] MEDS: AMOXICILLIN/CLAVULANATE K 875-125 MG TAB 1 TABLET PO ×2 (09:18→21:46)
[2021-05-20] MEDS: ACYCLOVIR 400 MG TABLET PO ×3 (09:18→16:54)
[2021-05-20] MEDS: LIDOCAINE 5% PATCH 1 PATCH TOPICAL (09:19)
[2021-05-20] MEDS: prednisoLONE ACETATE 1% OPHTH 5 ML 2 DROP EACH EYE ×2 (09:19→21:46)
[2021-05-20] MEDS: METOPROLOL TARTRATE 25 MG TABLET PO ×2 (09:19→21:46)
[2021-05-20] MEDS: THERAPEUTIC MULTIVITAMINS/MINERALS TAB (*BKC) 1 TABLET PO (09:19)
[2021-05-20] MEDS: PANTOPRAZOLE 40 MG TABLET PO (09:19)
[2021-05-20] MEDS: HEPARIN SODIUM 5,000 UNITS/ML VIAL 5000 UNITS SUB-Q (09:21)
[2021-05-20] MEDS: LIDOCAINE/PRILOCAINE CREAM 2.5-2.5% TUBE 1 EACH TOPICAL (09:23)
--- NOTE | 2021-05-20 10:36 | PCRCNOTE ---
Window of time for administration has passed. See next scheduled administration.
[2021-05-20] MEDS: ACETAMINOPHEN 325 MG TABLET 650 MG PO (12:44)
--- NOTE | 2021-05-20 13:23 | PM.CNCAR ---
Assessment and Plan Assessment and plan (1) Tachycardia: Code(s): R00.0 - Tachycardia, unspecified Status: Acute Assessment and Plan: Patient sinus tachycardia. Obviously multiple reasons for his sinus tachycardia including COVID infection, fever. Cannot exclude PE either. It also appears that his metoprolol has been held for unknown reasons and he could be going to beta-kaye withdrawal also. Metoprolol was restarted last night as heart rate is certainly much better. metoprolol tartrate 25 mg p.o. b.i.d.. (2) CAD (coronary artery disease): Code(s): I25.10 - Atherosclerotic heart disease of [place] coronary artery without angina pectoris Status: Acute Assessment and Plan: Continue aspirin, statin, metoprolol. stop DVT dose heparin. Will give full dose of enoxaparin 1 milligram/kilogram subQ x1 now and Q 12 (3) Hyperlipidemia LDL goal <70: Code(s): E78.5 - Hyperlipidemia, unspecified Status: Acute Assessment and Plan: On statin (4) COVID-19: Code(s): U07.1 - COVID-19 Status: Acute Assessment and Plan: Per hospitalist (5) Chest pain: Code(s): R07.9 - Chest pain, unspecified Status: Acute Assessment and Plan: Pleuritic but yet Deep pain. Obviously could be related to COVID. Cannot exclude other etiologies including PE or even underlying ischemia. Depending on results of his basic metabolic panel, CT chest to be performed. I will order bilateral lower extremity venous Dopplers at this point also stat (6) Elevated troponin: Code(s): R77.8 - Other specified abnormalities of plasma proteins Status: Acute Assessment and Plan: He has an elevated but down trending troponin since admission. He certainly could have a non ST-elevation myocardial infarction or this may be secondary to underlying illness. He has been having some intermittent chest pain. Chest pain is at times pleuritic though. He has no chest pains at present but will check an EKG now to evaluate for any changes given his chest pain yesterday (7) Renal failure: Code(s): N19 - Unspecified kidney failure Status: Acute Assessment and Plan: His elevated creatinine at admission 4 days ago but has not had another basic metabolic panel since admission. Will repeat a basic metabolic panel now and pending on his creatinine will order CTA rule out PE History of Present Illness History of Present Illness Consult date/time: 05/20/21 13:23 Requesting physician: James Sharma MD Consult reason: Other (SVT, new cardiac meds ) Reason For Visit: Pneumonia/COVID 19 infection Narrative: Requesting provider: Dr. Sharma Reason consultation: SVT ?new cardiac meds ? Date of service 05/20/2021 History patient is an 81-year-old male who was sick with COVID. He is still spiking fevers is tachypneic and tachycardic. On nurse monitoring he has been having elevated heart rates persistently. Heart rate does at times go to 160-170. There is no evidence of SVT. This all shows sinus rhythm. He is still short of breath. COVID-19 pneumonia was diagnosed 1 week ago status post admission at [facility] and discharged on 05/15/2021, multiple myeloma status post chemotherapy, hypertension, CAD status post stents, GERD who presented to the emergency department with complaints of chest tightness. Patient has no chest tightness at this point dated have some chest pain yesterday that was a deep pain. He states that it was mostly pleuritic and worsened with breathing. Review of Systems Review of Systems: All systems reviewed & are unremarkable except as noted in HPI and below Constitutional: Constitutional: Reports weakness Eyes: Eyes: Denies blurry vision ENT: Reports Normal hearing present Cardiovascular: Cardiovascular: Reports chest pain Respiratory: Respiratory: Reports dyspnea Gastrointestinal: Gastrointestinal: Denies abdominal pain Genitourinary:
--- NOTE | 2021-05-20 13:47 | ECG_ITS ---
Measurements Intervals [place] Rate: 114 P: 39 [place]: 145 QRS: -45 QRSD: 105 T: 1 QT: 354 QTc: 488 Interpretive Statements SINUS TACHYCARDIA VENTRICULAR PREMATURE COMPLEX INCOMPLETE RIGHT BUNDLE BRANCH BLOCK LEFT ANTERIOR FASCICULAR BLOCK BORDERLINE T WAVE ABNORMALITY- INFERIOR LEADS ABNORMAL ECG Electronically Signed On 05-20-2021 14:42:03 DEVELOPMENT DISABILITY SPECIALIST by Fred Mcdonough D.O.
[2021-05-20 14:52] LABS: Anion Gap 4 mmol/L (8-16); Blood Urea Nitrogen 16 mg/dL (9-20); Calcium 8.8 mg/dL (8.4-10.2); Carbon Dioxide 26 mmol/L (22-30); Chloride 97 mmol/L (98-107); Estimated CRCL calculation 37 ml/min; Estimated Glomerular Filt Rate 45; Glucose 96 mg/dL (65-110); Potassium 3.6 mmol/L (3.4-5.0); Sodium 127 mmol/L (137-145)
[2021-05-20] MEDS: DEXTROSE 5%/0.9% SOD CHL 1,000 ML 100 ML IV CONT (15:23)
[2021-05-20] MEDS: ENOXAPARIN 80 MG/0.8 ML SYRINGE 75 MG SUB-Q (16:53)
[2021-05-20] MEDS: TAMSULOSIN HCL 0.4 MG CAPSULE PO (21:46)
--- NOTE | 2021-05-20 23:18 | PCRCNOTE ---
Window of time for administration has passed. See next scheduled administration.
[2021-05-21] VITALS (18 sets, daily range): BP systolic 104–119; BP diastolic 50–68; PULSE 80–123; RESP 17–21; TEMP 36.1–38.4; O2SAT 90–98
[2021-05-21] MEDS: ACETAMINOPHEN 325 MG TABLET 650 MG PO ×3 (01:05→12:48)
[2021-05-21] MEDS: ENOXAPARIN 80 MG/0.8 ML SYRINGE 75 MG SUB-Q ×2 (01:06→16:30)
[2021-05-21] MEDS: ALPRAZolam (*CRX) 0.25 MG TABLET PO (01:06)
[2021-05-21] MEDS: DEXTROSE 5%/0.9% SOD CHL 1,000 ML 100 ML IV CONT ×2 (01:08→12:04)
[2021-05-21] MEDS: GABAPENTIN 300 MG CAPSULE PO ×3 (06:03→22:12)
[2021-05-21 06:25] LABS: Hematocrit 21.3 % (42.0-52.0); Hemoglobin 7.1 g/dL (14.0-18.0); Immature Platelet Fraction Pct 7.7 % (0.9-11.2); Mean Corpuscular HGB Conc 33.3 g/dl (32-36); Mean Corpuscular Hemoglobin 32.3 pg (26-34); Mean Corpuscular Volume 96.8 fl (80-100); Mean Platelet Volume 12.8 fl (7.4-10.4); Platelet Count Result 67 k/mm3 (150-375); Red Cell Distribution Width 21.3 % (11.5-14.5); White Blood Count 3.4 K/mm3 (4.5-10.0)
[2021-05-21 06:46] LABS: Alanine Aminotransferase 25 U/L (4-50); Albumin Level 2.5 g/dL (3.5-5.1); Alkaline Phosphatase 57 U/L (38-126); Anion Gap -1 mmol/L (8-16); Aspartate Amino Transferase 55 U/L (17-59); Bilirubin,Total 0.5 mg/dL (0.2-1.3); Blood Urea Nitrogen 16 mg/dL (9-20); Calcium 8.2 mg/dL (8.4-10.2); Carbon Dioxide 27 mmol/L (22-30); Chloride 101 mmol/L (98-107); Estimated CRCL calculation 42 ml/min; Estimated Glomerular Filt Rate 53; Glucose 114 mg/dL (65-110); Potassium 3.8 mmol/L (3.4-5.0); Sodium 127 mmol/L (137-145)
--- NOTE | 2021-05-21 09:07 | PCOTNOTE ---
Per RN and [employer] MECHANIC, pt is not appropriate to be seen today for occupational therapy tx. Will continue per POC duration/frequency tomorrow.
--- NOTE | 2021-05-21 09:09 | PCPTNOTE ---
PT held to day per RN due to change in medical status and further testing. PT will continue to follow per plan of care.
[2021-05-21] MEDS: ALBUTEROL SULFATE NEB 2.5 MG/0.5 ML INH 5 MG INHALATION ×4 (09:29→19:43)
[2021-05-21] MEDS: IPRATROPIUM BR 0.02% INH SOLN 0.5 MG/2.5 ML VIAL INHALATION ×4 (09:30→19:43)
[2021-05-21] MEDS: predniSONE 40 MG, predniSONE 10 MG 50 MG PO ×3 (09:31→20:38)
[2021-05-21] MEDS: PANTOPRAZOLE 40 MG TABLET PO (09:32)
[2021-05-21] MEDS: THERAPEUTIC MULTIVITAMINS/MINERALS TAB (*BKC) 1 TABLET PO (09:32)
[2021-05-21] MEDS: prednisoLONE ACETATE 1% OPHTH 5 ML 2 DROP EACH EYE ×2 (09:33→20:40)
[2021-05-21] MEDS: LIDOCAINE/PRILOCAINE CREAM 2.5-2.5% TUBE 1 EACH TOPICAL (09:33)
[2021-05-21] MEDS: ACYCLOVIR 400 MG TABLET PO ×3 (09:33→18:45)
[2021-05-21] MEDS: BENZONATATE 100 MG CAPSULE PO ×3 (09:33→18:44)
[2021-05-21] MEDS: LIDOCAINE 5% PATCH 1 PATCH TOPICAL (09:34)
[2021-05-21] MEDS: ASPIRIN 81 MG CHEWABLE TABLET PO (09:34)
[2021-05-21] MEDS: METOPROLOL TARTRATE 25 MG TABLET PO ×2 (09:35→20:39)
[2021-05-21] MEDS: ATORVASTATIN 40 MG TABLET PO (09:35)
[2021-05-21] MEDS: AMOXICILLIN/CLAVULANATE K 875-125 MG TAB 1 TABLET PO ×2 (09:35→20:39)
--- NOTE | 2021-05-21 10:54 | PM.PNCARD ---
Progress Note: A&P Assessment and Plan (1) Tachycardia: Code(s): R00.0 - Tachycardia, unspecified Status: Acute Assessment and Plan: Resolved with resuming metoprolol (2) CAD (coronary artery disease): Code(s): I25.10 - Atherosclerotic heart disease of [place] coronary artery without angina pectoris Status: Acute Assessment and Plan: Continue aspirin, statin, metoprolol. stop DVT dose heparin. Continue enoxapari (3) Hyperlipidemia LDL goal <70: Code(s): E78.5 - Hyperlipidemia, unspecified Status: Acute Assessment and Plan: On statin (4) COVID-19: Code(s): U07.1 - COVID-19 Status: Acute Assessment and Plan: Per hospitalist (5) Chest pain: Code(s): R07.9 - Chest pain, unspecified Status: Acute Assessment and Plan: Will start him on some nitroglycerin paste 1 Q 6 hours (6) Elevated troponin: Code(s): R77.8 - Other specified abnormalities of plasma proteins Status: Acute Assessment and Plan: He has an elevated but down trending troponin since admission. He certainly could have a non ST-elevation myocardial infarction or this may be secondary to underlying illness. He has been having some intermittent chest pain. Chest pain is at times pleuritic though. (7) Renal failure: Code(s): N19 - Unspecified kidney failure Status: Acute Assessment and Plan: His elevated creatinine at admission 4 days ago but has not had another basic metabolic panel since admission. Subjective Date/time seen: 05/21/21 10:54 Interval history: 81-year-old admitted with COVID pneumonia Date of service 05/21/2021: Has some intermittent chest pain. Resting comfortably when I 1st entered the room though. Breathing easier than yesterday Review of Systems Review of Systems: All systems reviewed & are unremarkable except as noted in HPI and below Constitutional: Constitutional: Denies excessive sweating, Denies fatigue, Denies headache(s) and Reports weakness Eyes: Eyes: Denies blurry vision ENT: Reports Normal hearing present, Denies headache(s) and Denies neck pain Cardiovascular: Cardiovascular: Reports chest pain and Reports dyspnea Respiratory: Respiratory: Reports dyspnea Gastrointestinal: Gastrointestinal: Denies abdominal pain Genitourinary: Genitourinary: Denies dysuria Musculoskeletal: Musculoskeletal: Denies neck pain Integumentary/Breasts: Skin/Breast: Denies dry skin Neurologic: Reports Normal hearing present, Denies headache(s) and Reports weakness Psychiatric: Psychiatric: Denies anxiety Endocrine: Endocrine: Denies excessive sweating and Denies fatigue Hematologic/Lymphatic: Hematologic/Lymphatic: Denies easy bleeding Allergic/Immunologic: Allergic/Immunologic: Denies GI upset with certain foods Exam Narrative: Appears stated age Const: General: No in distress HENMT: General nose exam: Normal nares present Eyes: Sclera: sclerae normal Neck: Neck: supple and no JVD Resp: Auscultation: diminished lung sounds Cardio: Rate: not tachycardic Rhythm: regular rhythm GI: Auscultation: normal bowel sounds Skin: General skin exam: normal color Neuro: Cranial nerves: Yes Normal hearing present Cognition (Neuro): normal cognition Speech: normal speech Extrem: General: normal to inspection and no edema Psych: Mental Status: mental status grossly normal Objective Data Vital Signs Vital Signs: Vital Signs - 24 hr 05/20/21 12:00 05/20/21 12:44 05/20/21 13:33 Temperature 37.7 C H 38.8 C H Pulse Rate 117 H 91 Respiratory Rate 20 20 Blood Pressure 115/66 Pulse Oximetry 91 05/20/21 13:34 05/20/21 13:43 05/20/21 13:44 Temperature 37.1 C Pulse Rate 94 Respiratory Rate 20 Blood Pressure Pulse Oximetry 95 05/20/21 16:00 05/20/21 20:00 05/20/21 21:46 Temperature 36.3 C L 36.6 C Pulse Rate 109 H 104 H 98 Respiratory Rate 1
--- NOTE | 2021-05-21 11:18 | PM.IMPN ---
Progress Note: A&P Assessment and Plan (1) COVID-19: Code(s): U07.1 - COVID-19 Status: Acute Assessment and Plan: Long haul COVID. Subacute COVID-19 infection, previously treated. 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 There is no indication for remdesivir and this patient are unclear. Patient is breathing comfortably on room air. He reports chest tightness. There may be prolong symptoms in patient recover in with COVID-19 pneumonia lasting 4 days to weeks or even months. Will encourage incentive spirometry. Will perform albuterol and ipratropium nebulization. Currently there is no indication for remdesivir and there would be no benefit from steroids. Continue symptomatic management with Tylenol p.r.n. and nebulization. (2) Pneumonia: Qualifiers: Laterality: unspecified laterality Lung location: unspecified part of lung Pneumonia type: due to unspecified organism Qualified Code(s): J18.9 - Pneumonia, unspecified organism Code(s): J18.9 - Pneumonia, unspecified organism Status: Acute Assessment and Plan: Status post treatment with remdesivir. Currently breathing comfortably on room air. Continue augmentin. Bilateral opacities on chest x-ray. Cefepime was stopped due to diarrhea. (3) Multiple myeloma not having achieved remission: Code(s): C90.00 - Multiple myeloma not having achieved remission Status: Acute Assessment and Plan: Status post chemotherapy with bortezomib. (4) Bone metastasis: Code(s): C79.51 - Secondary malignant neoplasm of bone Status: Acute Assessment and Plan: Pain management as stated. (5) Acute diarrhea: Code(s): R19.7 - Diarrhea, unspecified Status: Acute Assessment and Plan: C diff negative (6) Abnormal cardiac enzyme level: Code(s): R74.8 - Abnormal levels of other serum enzymes Status: Acute Assessment and Plan: Trending down words. Will consult Cardiology for discharge. 2D echo ordered (7) Anemia: Code(s): D64.9 - Anemia, unspecified Status: Acute Assessment and Plan: Patient name [place] be secondary to his multiple myeloma however there is an acute drop in hemoglobin. Plan is to do Hemoccult stool and if needed will consult GI service. Will continue to transfer to as needed for hemoglobin less than 7.1. Repeat CBC in the morning. Additional Plan 05/19/2021 Patient is slightly less symptomatic today. Will continue current plan of care and treatment. Possible discharge in next couple of days. 05/20/2021 Patient is clinically improving. Patient troponin is still high but trending downward. We will consult Cardiology and 2D echo will discharge. If stays okay will go home tomorrow. 05/21/2021 New development is that patient hemoglobin has dropped to 7.1, plan is to transfuse and monitor closely. Cardiology consult noted. CT of the chest was not done because of high creatinine and alert she to add and. With IV hydration patient creatinine has improved will start PE protocol for Iodine allergy and get a CTA done tonight. Patient code status is DNR. Case was discussed with family in detail,agreed with current plan of care and treatment. Subjective Date/time seen: 05/21/21 11:18 Patient was seen during the morning rounds today. Still have occasional chest pain however breathing is better. No abdominal pain, nausea, no vomiting, no diarrhea. Mood stable. Review of Systems Review of Systems: All systems reviewed & are unremarkable except as noted in HPI and below Constitutional: Constitutional: Reports fever(s) Gastrointestinal: Gastrointestinal: Reports diarrhea Exam Const: General: comfortable and no acute distress HENMT: General nose exam: no epistaxis Mouth: Yes moist mucous membranes Eyes: General: appearance normal, both eyes and all related structures Pupils: Equal, round and reactive pupils present EOM: EOMs intact bilater
[2021-05-21] MEDS: NITROGLYCERIN OINTMENT 1 INCH DOSE TRANSDERM ×3 (12:47→23:21)
[2021-05-21] MEDS: SODIUM CHLORIDE 0.9% IV 250 ML 30 ML IV CONT (16:01)
[2021-05-21] MEDS: FUROSEMIDE INJ 40 MG/4 ML VIAL 20 MG IV PUSH (18:46)
[2021-05-21] MEDS: diphenhydrAMINE HCl INJ 50 MG/ML VIAL IV PUSH (20:40)
[2021-05-21] MEDS: TAMSULOSIN HCL 0.4 MG CAPSULE PO (20:40)
--- NOTE | 2021-05-21 21:00 | PC.NURSE ---
Per Dr. Peraza--Ok to HOLD 2nd unit of blood.
[2021-05-21 21:04] LABS: Hematocrit 24.1 % (42.0-52.0); Hemoglobin 8.1 g/dL (14.0-18.0)
[2021-05-22] VITALS (20 sets, daily range): BP systolic 101–151; BP diastolic 57–82; PULSE 73–125; RESP 16–24; TEMP 35.8–38.2; O2SAT 91–98
[2021-05-22] MEDS: ENOXAPARIN 80 MG/0.8 ML SYRINGE 75 MG SUB-Q (02:36)
[2021-05-22] MEDS: ALBUTEROL SULFATE NEB 2.5 MG/0.5 ML INH 5 MG INHALATION ×2 (04:25→21:06)
[2021-05-22] MEDS: IPRATROPIUM BR 0.02% INH SOLN 0.5 MG/2.5 ML VIAL INHALATION ×2 (04:25→21:06)
[2021-05-22] MEDS: GABAPENTIN 300 MG CAPSULE PO ×3 (05:21→22:01)
[2021-05-22] MEDS: NITROGLYCERIN OINTMENT 1 INCH DOSE TRANSDERM (05:21)
[2021-05-22 06:30] LABS: Hematocrit 23.9 % (42.0-52.0); Immature Platelet Fraction Pct 7.9 % (0.9-11.2); Mean Corpuscular HGB Conc 33.5 g/dl (32-36); Mean Corpuscular Hemoglobin 31.9 pg (26-34); Mean Corpuscular Volume 95.2 fl (80-100); Mean Platelet Volume 12.9 fl (7.4-10.4); Platelet Count Result 62 k/mm3 (150-375); Red Blood Count 2.51 M/mm3 (4.6-6.20); Red Cell Distribution Width 20.4 % (11.5-14.5); White Blood Count 2.6 K/mm3 (4.5-10.0)
[2021-05-22 06:42] LABS: Alanine Aminotransferase 24 U/L (4-50); Albumin Level 2.5 g/dL (3.5-5.1); Alkaline Phosphatase 54 U/L (38-126); Anion Gap 6 mmol/L (8-16); Aspartate Amino Transferase 43 U/L (17-59); Bilirubin,Total 0.6 mg/dL (0.2-1.3); Blood Urea Nitrogen 16 mg/dL (9-20); Carbon Dioxide 23 mmol/L (22-30); Chloride 102 mmol/L (98-107); Estimated CRCL calculation 49 ml/min; Estimated Glomerular Filt Rate > 60; Glucose 153 mg/dL (65-110); Potassium 3.8 mmol/L (3.4-5.0); Sodium 131 mmol/L (137-145)
[2021-05-22 06:56] LABS: Troponin I 0.277 ng/mL (0.000-0.034)
[2021-05-22] MEDS: LIDOCAINE 5% PATCH 1 PATCH TOPICAL (09:06)
[2021-05-22] MEDS: BENZONATATE 100 MG CAPSULE PO ×3 (09:07→16:46)
[2021-05-22] MEDS: prednisoLONE ACETATE 1% OPHTH 5 ML 2 DROP EACH EYE ×2 (09:07→20:30)
[2021-05-22] MEDS: ASPIRIN 81 MG CHEWABLE TABLET PO (09:08)
[2021-05-22] MEDS: AMOXICILLIN/CLAVULANATE K 875-125 MG TAB 1 TABLET PO ×2 (09:08→20:31)
[2021-05-22] MEDS: ATORVASTATIN 40 MG TABLET PO (09:08)
[2021-05-22] MEDS: ACYCLOVIR 400 MG TABLET PO ×3 (09:09→16:46)
[2021-05-22] MEDS: THERAPEUTIC MULTIVITAMINS/MINERALS TAB (*BKC) 1 TABLET PO (09:09)
[2021-05-22] MEDS: METOPROLOL TARTRATE 25 MG TABLET PO ×2 (09:09→20:31)
[2021-05-22] MEDS: PANTOPRAZOLE SODIUM IV 40 MG VIAL IV PUSH (09:09)
--- NOTE | 2021-05-22 09:35 | PM.IMPN ---
Progress Note: A&P Assessment and Plan (1) COVID-19: Code(s): U07.1 - COVID-19 Status: Acute Assessment and Plan: Long haul COVID. Subacute COVID-19 infection, previously treated. 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 There is no indication for remdesivir and this patient are unclear. Patient is breathing comfortably on room air. He reports chest tightness. There may be prolong symptoms in patient recover in with COVID-19 pneumonia lasting 4 days to weeks or even months. Will encourage incentive spirometry. Will perform albuterol and ipratropium nebulization. Currently there is no indication for remdesivir and there would be no benefit from steroids. Continue symptomatic management with Tylenol p.r.n. and nebulization. (2) Pneumonia: Qualifiers: Laterality: unspecified laterality Lung location: unspecified part of lung Pneumonia type: due to unspecified organism Qualified Code(s): J18.9 - Pneumonia, unspecified organism Code(s): J18.9 - Pneumonia, unspecified organism Status: Acute Assessment and Plan: Status post treatment with remdesivir. Currently breathing comfortably on room air. Continue augmentin. Bilateral opacities on chest x-ray. Cefepime was stopped due to diarrhea. (3) Multiple myeloma not having achieved remission: Code(s): C90.00 - Multiple myeloma not having achieved remission Status: Acute Assessment and Plan: Status post chemotherapy with bortezomib. (4) Bone metastasis: Code(s): C79.51 - Secondary malignant neoplasm of bone Status: Acute Assessment and Plan: Pain management as stated. (5) Acute diarrhea: Code(s): R19.7 - Diarrhea, unspecified Status: Acute Assessment and Plan: C diff negative (6) Abnormal cardiac enzyme level: Code(s): R74.8 - Abnormal levels of other serum enzymes Status: Acute Assessment and Plan: Trending down words. Will consult Cardiology for discharge. 2D echo ordered (7) Anemia: Code(s): D64.9 - Anemia, unspecified Status: Acute Assessment and Plan: Patient name [place] be secondary to his multiple myeloma however there is an acute drop in hemoglobin. Plan is to do Hemoccult stool and if needed will consult GI service. Will continue to transfer to as needed for hemoglobin less than 7.1. Repeat CBC in the morning. Additional Plan 05/19/2021 Patient is slightly less symptomatic today. Will continue current plan of care and treatment. Possible discharge in next couple of days. 05/20/2021 Patient is clinically improving. Patient troponin is still high but trending downward. We will consult Cardiology and 2D echo will discharge. If stays okay will go home tomorrow. 05/21/2021 New development is that patient hemoglobin has dropped to 7.1, plan is to transfuse and monitor closely. Cardiology consult noted. CT of the chest was not done because of high creatinine and alert she to add and. With IV hydration patient creatinine has improved will start PE protocol for Iodine allergy and get a CTA done tonight. Patient code status is DNR. Case was discussed with family in detail,agreed with current plan of care and treatment. 05/22/2021 Patient is a with 1 unit of blood, hemoglobin improved to 8.1. Patient cardiac enzymes were also trending downward. Plan is to continue current treatment monitor hemoglobin pain increase activity as tolerated. Possible discharge home in the morning. Subjective Date/time seen: 05/22/21 09:35 Patient was seen during the morning rounds today. Patient is feeling much better today decreased shortness of breath, decrease chest pain. No abdominal pain, nausea, no vomiting. Mood stable. Interval history: 81-year-old admitted with COVID pneumonia Date of service 05/21/2021: Has some intermittent chest pain. Resting comfortably when I 1st entered the room though. Breathing easier than yesterday Review of S
--- NOTE | 2021-05-22 10:11 | PCRCNOTE ---
Window of time for administration has passed. See next scheduled administration.
--- NOTE | 2021-05-22 11:20 | PCOTNOTE ---
On 05/22/21, Yomaira OWEN, provided care and completed [employer] documentation on this patient. I have reviewed the student's documentation and agree with the findings.
[2021-05-22] MEDS: SODIUM CHLORIDE 0.9% IV 250 ML 30 ML (11:45)
--- NOTE | 2021-05-22 11:47 | PM.PNCARD ---
Progress Note: A&P Assessment and Plan (1) Tachycardia: Code(s): R00.0 - Tachycardia, unspecified Status: Acute Assessment and Plan: Resolved with resuming metoprolol (2) CAD (coronary artery disease): Code(s): I25.10 - Atherosclerotic heart disease of [place] coronary artery without angina pectoris Status: Acute Assessment and Plan: Continue aspirin, statin, metoprolol. stop DVT dose heparin. Continue ACS dosing enoxaparin for another 24 hours (3) Hyperlipidemia LDL goal <70: Code(s): E78.5 - Hyperlipidemia, unspecified Status: Acute Assessment and Plan: On statin (4) COVID-19: Code(s): U07.1 - COVID-19 Status: Acute Assessment and Plan: Per hospitalist (5) Chest pain: Code(s): R07.9 - Chest pain, unspecified Status: Acute Assessment and Plan: Start isosorbide mononitrate 30 mg daily. First dose now. DC topical nitro (6) Elevated troponin: Code(s): R77.8 - Other specified abnormalities of plasma proteins Status: Acute Assessment and Plan: He has an elevated but down trending troponin since admission. He certainly could have a non ST-elevation myocardial infarction or this may be secondary to underlying illness. Improved at present (7) Renal failure: Code(s): N19 - Unspecified kidney failure Status: Acute Assessment and Plan: His elevated creatinine at admission 4 days ago but has not had another basic metabolic panel since admission. Subjective Date/time seen: 05/22/21 11:47 Interval history: 81-year-old admitted with COVID pneumonia Date of service 05/21/2021: Has some intermittent chest pain. Resting comfortably when I 1st entered the room though. Breathing easier than yesterday Date of service 05/22/2021: He still seems to be a bit intermittently confused but overall appears better. Respiratory status is more stable. Denies shortness of breath at rest. No chest pain Review of Systems Review of Systems: All systems reviewed & are unremarkable except as noted in HPI and below Constitutional: Constitutional: Denies excessive sweating, Denies fatigue, Denies headache(s) and Reports weakness Eyes: Eyes: Denies blurry vision ENT: Reports Normal hearing present, Denies headache(s) and Denies neck pain Cardiovascular: Cardiovascular: Reports chest pain and Reports dyspnea Respiratory: Respiratory: Reports dyspnea Gastrointestinal: Gastrointestinal: Denies abdominal pain Genitourinary: Genitourinary: Denies dysuria Musculoskeletal: Musculoskeletal: Denies neck pain Integumentary/Breasts: Skin/Breast: Denies dry skin Neurologic: Reports Normal hearing present, Denies headache(s) and Reports weakness Psychiatric: Psychiatric: Denies anxiety Endocrine: Endocrine: Denies excessive sweating and Denies fatigue Hematologic/Lymphatic: Hematologic/Lymphatic: Denies easy bleeding Allergic/Immunologic: Allergic/Immunologic: Denies GI upset with certain foods Exam Narrative: Appears stated age Const: General: No in distress HENMT: General nose exam: Normal nares present Eyes: Sclera: sclerae normal Neck: Neck: supple and no JVD Resp: Auscultation: diminished lung sounds Cardio: Rate: not tachycardic Rhythm: regular rhythm GI: Auscultation: normal bowel sounds Skin: General skin exam: normal color Neuro: Cranial nerves: Yes Normal hearing present Cognition (Neuro): normal cognition Speech: normal speech Extrem: General: normal to inspection and no edema Psych: Mental Status: mental status grossly normal Objective Data Vital Signs Vital Signs: Vital Signs - 24 hr 05/21/21 12:00 05/21/21 16:00 05/21/21 16:19 Temperature 36.6 C 36.1 C L 36.1 C L Pulse Rate 85 96 88 Respiratory Rate 21 H 20 20 Blood Pressure 104/50 L 106/52 L 106/52 L Pulse Oximetry 98 96 96 05/21/21 16:38 05/21/21 17:38 05/21/21 18:38 Temperature 36.2 C L
[2021-05-22] MEDS: ISOSORBIDE MONONITRATE 30 MG TAB.ER.24H PO (12:17)
--- NOTE | 2021-05-22 16:29 | PM.CNPUL ---
Assessment and Plan Assessment and plan (1) Pneumonia: Qualifiers: Laterality: unspecified laterality Lung location: unspecified part of lung Pneumonia type: due to unspecified organism Qualified Code(s): J18.9 - Pneumonia, unspecified organism Code(s): J18.9 - Pneumonia, unspecified organism Status: Acute Assessment and Plan: 81-year-old man with a history of multiple myeloma on chemotherapy, treated elsewhere for COVID 19 pneumonia, presented with shortness of breath and fatigue. Patient was treated for ischemic cardiac pain during this hospitalization. Chest imaging studies have shown worsening bilateral infiltrates and new small pleural effusions on today's chest CT. There was no evidence of pulmonary embolism. Currently the patient is stable from respiratory standpoint, breathing just room air. The initial infiltrates seen on admission chest x-ray were related to recent COVID 19 infection. The worsening of bilateral infiltrates during hospitalization in conjunction with a positive fluid balance of over 13 L makes fluid overload/CHF likely. I doubt there is superimposed bacterial coinfection. Creatinine is back into the normal range. I would consider gentle diuresis while monitoring the respiratory status. We will sign off. Call with any questions. (2) Pleural effusion: Code(s): J90 - Pleural effusion, not elsewhere classified Status: Acute (3) Multiple myeloma not having achieved remission: Code(s): C90.00 - Multiple myeloma not having achieved remission Status: Acute (4) COVID-19: Code(s): U07.1 - COVID-19 Status: Acute (5) CAD (coronary artery disease): Qualifiers: Associated angina: with unspecified form of angina Coronary Disease-Associated Artery/Lesion type: unspecified vessel or lesion type [place] vs. transplanted heart: [place] heart Qualified Code(s): I25.119 - Atherosclerotic heart disease of [place] coronary artery with unspecified angina pectoris Code(s): I25.10 - Atherosclerotic heart disease of [place] coronary artery without angina pectoris Status: Acute History of Present Illness History of Present Illness Consult date: 05/22/21 Chief complaint: Pneumonia/COVID 19 infection Narrative: this 81-year-old man presented with weakness fatigue and shortness of breath approximately 6 days ago. The patient was diagnosed with COVID-19 pneumonia and was hospitalized from May 08 through May 12 at [facility]. He reportedly received treatment with remdesivir but did not require supplemental oxygen. The patient was discharged home 4 days later. He presented to the emergency room complaining of generalized fatigue muscle aches and some shortness of breath. In the emergency room his temperature was 36.9? he was hemodynamically stable he had a O2 saturation of 96% on room air. Chest x-ray showed small infiltrates bilaterally primarily on the right. Subsequently while inpatient, the patient was evaluated for possible ischemic chest pain as his troponin was found to be elevated. The patient was evaluated by Cardiology and was treated with beta-kaye and other medications. Review of chest x-rays during this hospitalization showed that the chest x-ray showed worsening of bilateral infiltrates compared to the chest x-ray on admission. currently the patient has no respiratory symptoms. He remains on room air. Recent chest CT showed bilateral infiltrates and small pleural effusions. Past medical history is also significant for coronary artery disease, multiple myeloma status post chemotherapy, hypertension, GERD. Since admission to the hospital the patient has been fluid positive for about over 13 L. Review of Systems Review of Systems: All systems reviewed & are unremarkable except as noted in HPI and below PMFSH Past Medical History Medical History (Updated 05/22/21 @ 16:38 by Carlos Morales MD) CAD (coronary artery di
[2021-05-22 17:38] LABS: IFOB Positive Control Positive; Immunochemical Fecal Occult Bl Negative (N)
[2021-05-22] MEDS: TAMSULOSIN HCL 0.4 MG CAPSULE PO (20:31)
[2021-05-22] MEDS: ACETAMINOPHEN 325 MG TABLET 650 MG PO (22:00)
[2021-05-22] MEDS: ALPRAZolam (*CRX) 0.25 MG TABLET PO (22:03)
[2021-05-22] MEDS: HEPARIN SODIUM LOCK FLUSH 500 UNITS/5 ML VIAL IV PUSH (22:34)
[2021-05-23] VITALS (22 sets, daily range): BP systolic 99–157; BP diastolic 55–86; PULSE 88–138; RESP 16–24; TEMP 37.2–39.2; O2SAT 90–95
[2021-05-23] MEDS: ENOXAPARIN 80 MG/0.8 ML SYRINGE 75 MG SUB-Q ×2 (01:32→17:49)
[2021-05-23] MEDS: ALBUTEROL SULFATE NEB 2.5 MG/0.5 ML INH 5 MG INHALATION ×3 (02:25→20:38)
[2021-05-23] MEDS: IPRATROPIUM BR 0.02% INH SOLN 0.5 MG/2.5 ML VIAL INHALATION ×3 (02:25→20:38)
[2021-05-23] MEDS: DEXTROSE 5%/0.9% SOD CHL 1,000 ML 75 ML IV CONT (02:38)
[2021-05-23] MEDS: CYCLOBENZAPRINE HCL 10 MG TABLET PO (02:56)
[2021-05-23] MEDS: ACETAMINOPHEN 325 MG TABLET 650 MG PO ×4 (03:00→21:48)
[2021-05-23] MEDS: CENTRAL LINE FLUSH 10 ML IV PUSH ×3 (04:58→21:21)
[2021-05-23] MEDS: GABAPENTIN 300 MG CAPSULE PO ×3 (04:59→21:21)
[2021-05-23 05:58] LABS: Troponin I 0.304 ng/mL (0.000-0.034)
[2021-05-23 07:35] LABS: Basophils Percent Auto 0.2 % (0.2-1.2); Hematocrit 25.7 % (42.0-52.0); Hemoglobin 8.6 g/dL (14.0-18.0); Immature Granulocyte Absolute 0.11 K/mm3 (0.00-0.031); Immature Granulocyte Percent A 2.7 % (0-0.5); Lymphocytes Absolute Auto 0.45 K/mm3 (0.9-3.2); Lymphocytes Percent Auto 11.1 % (18.3-44.2); Mean Corpuscular HGB Conc 33.5 g/dl (32-36); Mean Corpuscular Hemoglobin 31.4 pg (26-34); Mean Corpuscular Volume 93.8 fl (80-100); Monocytes Absolute Auto 0.3 K/mm3 (0.1-0.6); Monocytes Percent Auto 6.9 % (2.6-8.5); Neutrophils Absolute Auto 3.2 K/mm3 (1.3-6.7); Neutrophils Percent Auto 79.1 % (45.5-73.1); Platelet Count Result 60 k/mm3 (150-375); Red Blood Count 2.74 M/mm3 (4.6-6.20); Red Cell Distribution Width 20.8 % (11.5-14.5); White Blood Count 4.1 K/mm3 (4.5-10.0)
[2021-05-23 07:38] LABS: Ovalocytes 2+ (NORMAL); Platelet Estimate Decreased (Adequate)
[2021-05-23 07:39] LABS: Tear Drop Cells 2+ (NORMAL)
[2021-05-23] MEDS: DEXTROSE 5%/0.9% SOD CHL 1,000 ML 100 ML IV CONT (08:35)
--- NOTE | 2021-05-23 09:21 | PM.IMPN ---
Progress Note: A&P Assessment and Plan (1) COVID-19: Code(s): U07.1 - COVID-19 Status: Acute Assessment and Plan: Long haul COVID. Subacute COVID-19 infection, previously treated. 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 There is no indication for remdesivir and this patient are unclear. Patient is breathing comfortably on room air. He reports chest tightness. There may be prolong symptoms in patient recover in with COVID-19 pneumonia lasting 4 days to weeks or even months. Will encourage incentive spirometry. Will perform albuterol and ipratropium nebulization. Currently there is no indication for remdesivir and there would be no benefit from steroids. Continue symptomatic management with Tylenol p.r.n. and nebulization. (2) Pneumonia: Qualifiers: Laterality: unspecified laterality Lung location: unspecified part of lung Pneumonia type: due to unspecified organism Qualified Code(s): J18.9 - Pneumonia, unspecified organism Code(s): J18.9 - Pneumonia, unspecified organism Status: Acute Assessment and Plan: Status post treatment with remdesivir. Currently breathing comfortably on room air. Continue augmentin. Bilateral opacities on chest x-ray. Cefepime was stopped due to diarrhea. (3) Multiple myeloma not having achieved remission: Code(s): C90.00 - Multiple myeloma not having achieved remission Status: Acute Assessment and Plan: Status post chemotherapy with bortezomib. (4) Bone metastasis: Code(s): C79.51 - Secondary malignant neoplasm of bone Status: Acute Assessment and Plan: Pain management as stated. (5) Acute diarrhea: Code(s): R19.7 - Diarrhea, unspecified Status: Acute Assessment and Plan: C diff negative (6) Abnormal cardiac enzyme level: Code(s): R74.8 - Abnormal levels of other serum enzymes Status: Acute Assessment and Plan: Trending down words. Will consult Cardiology for discharge. 2D echo ordered (7) Anemia: Code(s): D64.9 - Anemia, unspecified Status: Acute Assessment and Plan: Patient name [place] be secondary to his multiple myeloma however there is an acute drop in hemoglobin. Plan is to do Hemoccult stool and if needed will consult GI service. Will continue to transfer to as needed for hemoglobin less than 7.1. Repeat CBC in the morning. Additional Plan 05/19/2021 Patient is slightly less symptomatic today. Will continue current plan of care and treatment. Possible discharge in next couple of days. 05/20/2021 Patient is clinically improving. Patient troponin is still high but trending downward. We will consult Cardiology and 2D echo will discharge. If stays okay will go home tomorrow. 05/21/2021 New development is that patient hemoglobin has dropped to 7.1, plan is to transfuse and monitor closely. Cardiology consult noted. CT of the chest was not done because of high creatinine and alert she to add and. With IV hydration patient creatinine has improved will start PE protocol for Iodine allergy and get a CTA done tonight. Patient code status is DNR. Case was discussed with family in detail,agreed with current plan of care and treatment. 05/22/2021 Patient is a with 1 unit of blood, hemoglobin improved to 8.1. Patient cardiac enzymes were also trending downward. Plan is to continue current treatment monitor hemoglobin pain increase activity as tolerated. Possible discharge home in the morning. 05/15/2021 Patient with low-grade fever overnight and weighs slightly tachycardic. Plan is to re-culture and start IV ceftriaxone and Zithromax. Give some IV fluids. Discharge today. Pulmonary consult noted. Subjective Date/time seen: 05/23/21 09:21 Patient was seen during the morning rounds today. Patient had low-grade fever. Mild shortness of breath no chest pain. No abdominal pain, nausea, no vomiting. Mood stable. Interval history: 81-year-old admit
--- NOTE | 2021-05-23 11:09 | PCPTNOTE ---
Pt stated that he wasn't feeling too well this morning and asked if we could check back later. Nursing stated that he was not having a good day, and is a little more confused this morning. Nursing also said that the doctor came in and was changing some things to help him.
--- NOTE | 2021-05-23 11:29 | PCOTNOTE ---
Attempted to see for OT session this date. Patient refused to participate in any activity at this time. Patient is having increased confusion and per RN has been spiking temps and just not doing as well as yesterday.
[2021-05-23] MEDS: LIDOCAINE 5% PATCH 1 PATCH TOPICAL (12:45)
[2021-05-23] MEDS: ASPIRIN 81 MG CHEWABLE TABLET PO (12:45)
[2021-05-23] MEDS: PANTOPRAZOLE SODIUM IV 40 MG VIAL IV PUSH (12:45)
[2021-05-23] MEDS: ATORVASTATIN 40 MG TABLET PO (12:46)
[2021-05-23] MEDS: ACYCLOVIR 400 MG TABLET PO ×2 (12:46→17:48)
--- NOTE | 2021-05-23 13:04 | PCPTNOTE ---
The patient treatment was not able to be completed this date. Nursing stated that he still wasn't feeling well and he didn't want to wake up to eat his lunch. Will plan to continue treatment per plan of care.
--- NOTE | 2021-05-23 14:23 | PM.PNCARD ---
Progress Note: A&P Assessment and Plan (1) Tachycardia: Code(s): R00.0 - Tachycardia, unspecified Status: Acute Assessment and Plan: Initially resolved with resuming metoprolol but he has been quite tachycardic today. Rate currently in the 120s to 130s but has frequently been in the 140's-150 on telemetry. Likely secondary to infection/fever. Continue IV fluids. (2) CAD (coronary artery disease): Qualifiers: Associated angina: with unspecified form of angina Coronary Disease-Associated Artery/Lesion type: unspecified vessel or lesion type [place] vs. transplanted heart: [place] heart Qualified Code(s): I25.119 - Atherosclerotic heart disease of [place] coronary artery with unspecified angina pectoris Code(s): I25.10 - Atherosclerotic heart disease of [place] coronary artery without angina pectoris Status: Acute Assessment and Plan: Continue aspirin, statin, metoprolol. DVT dosing of lovenox can be resumed. (3) Hyperlipidemia LDL goal <70: Code(s): E78.5 - Hyperlipidemia, unspecified Status: Acute Assessment and Plan: On statin (4) COVID-19: Code(s): U07.1 - COVID-19 Status: Acute Assessment and Plan: Per hospitalist (5) Chest pain: Code(s): R07.9 - Chest pain, unspecified Status: Acute Assessment and Plan: On isosorbide mononitrate 30 mg daily. (6) Elevated troponin: Code(s): R77.8 - Other specified abnormalities of plasma proteins Status: Acute Assessment and Plan: He has an elevated but down trending troponin since admission (1.45, 0.277, 0.304). He certainly could have had a non ST-elevation myocardial infarction or this may be secondary to underlying illness. Currently denying any chest pain. (7) Renal failure: Code(s): N19 - Unspecified kidney failure Status: Acute Assessment and Plan: His elevated creatinine at admission but it has normalized at this point. Subjective Date/time seen: 05/23/21 14:23 Interval history: 81-year-old admitted with COVID pneumonia Date of service 05/21/2021: Has some intermittent chest pain. Resting comfortably when I 1st entered the room though. Breathing easier than yesterday Date of service 05/22/2021: He still seems to be a bit intermittently confused but overall appears better. Respiratory status is more stable. Denies shortness of breath at rest. No chest pain Date of service 05/23/2021: Review of Systems Review of Systems: All systems reviewed & are unremarkable except as noted in HPI and below Constitutional: Constitutional: Denies excessive sweating, Denies fatigue, Denies headache(s) and Reports weakness Eyes: Eyes: Denies blurry vision ENT: Reports Normal hearing present, Denies headache(s) and Denies neck pain Cardiovascular: Cardiovascular: Reports chest pain and Reports dyspnea Respiratory: Respiratory: Reports dyspnea Gastrointestinal: Gastrointestinal: Denies abdominal pain Genitourinary: Genitourinary: Denies dysuria Musculoskeletal: Musculoskeletal: Denies neck pain Integumentary/Breasts: Skin/Breast: Denies dry skin Neurologic: Reports Normal hearing present, Denies headache(s) and Reports weakness Psychiatric: Psychiatric: Denies anxiety Endocrine: Endocrine: Denies excessive sweating and Denies fatigue Hematologic/Lymphatic: Hematologic/Lymphatic: Denies easy bleeding Allergic/Immunologic: Allergic/Immunologic: Denies GI upset with certain foods Exam Narrative: Appears stated age Const: General: tired appearing; No in distress HENMT: General nose exam: Normal nares present Eyes: Sclera: sclerae normal Neck: Neck: supple and no JVD Resp: Auscultation: no rales, no rhonchi and diminished lung sounds Cardio: Rate: tachycardic Rhythm: regular rhythm Heart sounds: no murmurs GI: Auscultation: normal bowel sounds Skin: General skin exam: normal color Neuro: Crania
[2021-05-23] MEDS: DEXTROSE 5%/0.9% SOD CHL 1,000 ML 125 ML IV CONT (16:25)
[2021-05-23] MEDS: ISOSORBIDE MONONITRATE 30 MG TAB.ER.24H PO (17:49)
[2021-05-23] MEDS: BENZONATATE 100 MG CAPSULE PO (17:50)
[2021-05-23] MEDS: PIPERACILLIN/TAZOBACTAM SOD 4.5 GM in SODIUM CHLORIDE 0.9% IV 100 ML 200 ML IVPB ×2 (21:19→23:23)
[2021-05-23] MEDS: METOPROLOL TARTRATE 50 MG TAB PO (21:19)
[2021-05-23] MEDS: prednisoLONE ACETATE 1% OPHTH 5 ML 2 DROP EACH EYE (21:20)
[2021-05-23] MEDS: TAMSULOSIN HCL 0.4 MG CAPSULE PO (21:21)
[2021-05-24] VITALS (22 sets, daily range): BP systolic 109–165; BP diastolic 64–93; PULSE 76–125; RESP 17–20; TEMP 36.6–39.3; O2SAT 88–96
[2021-05-24] MEDS: ENOXAPARIN 80 MG/0.8 ML SYRINGE 75 MG SUB-Q (01:12)
[2021-05-24] MEDS: DEXTROSE 5%/0.9% SOD CHL 1,000 ML 125 ML IV CONT ×3 (02:05→23:34)
[2021-05-24] MEDS: ACETAMINOPHEN 325 MG TABLET 650 MG PO ×3 (04:52→14:57)
[2021-05-24] MEDS: PIPERACILLIN/TAZOBACTAM SOD 4.5 GM in SODIUM CHLORIDE 0.9% IV 100 ML 200 ML IVPB ×4 (05:50→23:34)
[2021-05-24] MEDS: GABAPENTIN 300 MG CAPSULE PO ×3 (05:51→21:36)
[2021-05-24] MEDS: CENTRAL LINE FLUSH 10 ML IV PUSH ×3 (06:32→21:38)
[2021-05-24 06:53] LABS: Basophils Percent Auto 0.3 % (0.2-1.2); Hematocrit 25.8 % (42.0-52.0); Hemoglobin 8.6 g/dL (14.0-18.0); Immature Granulocyte Absolute 0.06 K/mm3 (0.00-0.031); Immature Granulocyte Percent A 1.6 % (0-0.5); Immature Platelet Fraction Pct 5.4 % (0.9-11.2); Lymphocytes Absolute Auto 0.39 K/mm3 (0.9-3.2); Lymphocytes Percent Auto 10.1 % (18.3-44.2); Mean Corpuscular HGB Conc 33.3 g/dl (32-36); Mean Corpuscular Hemoglobin 30.9 pg (26-34); Mean Corpuscular Volume 92.8 fl (80-100); Mean Platelet Volume 12.6 fl (7.4-10.4); Monocytes Absolute Auto 0.2 K/mm3 (0.1-0.6); Monocytes Percent Auto 5.5 % (2.6-8.5); Neutrophils Absolute Auto 3.2 K/mm3 (1.3-6.7); Neutrophils Percent Auto 82.5 % (45.5-73.1); Platelet Count Result 49 k/mm3 (150-375); Red Blood Count 2.78 M/mm3 (4.6-6.20); Red Cell Distribution Width 20.1 % (11.5-14.5); White Blood Count 3.9 K/mm3 (4.5-10.0)
[2021-05-24 07:08] LABS: Alanine Aminotransferase 27 U/L (4-50); Albumin Level 2.5 g/dL (3.5-5.1); Alkaline Phosphatase 59 U/L (38-126); Anion Gap -1 mmol/L (8-16); Aspartate Amino Transferase 42 U/L (17-59); Bilirubin,Total 0.6 mg/dL (0.2-1.3); Blood Urea Nitrogen 9 mg/dL (9-20); Calcium 7.5 mg/dL (8.4-10.2); Carbon Dioxide 25 mmol/L (22-30); Chloride 106 mmol/L (98-107); Estimated CRCL calculation 54 ml/min; Estimated Glomerular Filt Rate > 60; Glucose 100 mg/dL (65-110); Sodium 130 mmol/L (137-145)
[2021-05-24 07:18] LABS: Troponin I 0.152 ng/mL (0.000-0.034)
[2021-05-24 07:30] LABS: Burr Cells 1+ (NORMAL); Hypochromasia 1+ (NORMAL); Ovalocytes 1+ (NORMAL); Platelet Estimate Decreased (Adequate)
--- NOTE | 2021-05-24 08:29 | PCPTNOTE ---
Attempted to see patient, however declined at this time. Patient having difficulty staying awake to talk. PT will continue to follow per plan of care.
[2021-05-24] MEDS: THERAPEUTIC MULTIVITAMINS/MINERALS TAB (*BKC) 1 TABLET PO (09:55)
[2021-05-24] MEDS: PANTOPRAZOLE SODIUM IV 40 MG VIAL IV PUSH (09:55)
[2021-05-24] MEDS: METOPROLOL TARTRATE 50 MG TAB PO ×2 (09:56→21:36)
[2021-05-24] MEDS: LIDOCAINE 5% PATCH 1 PATCH TOPICAL (09:56)
[2021-05-24] MEDS: ASPIRIN 81 MG CHEWABLE TABLET PO (09:57)
[2021-05-24] MEDS: ATORVASTATIN 40 MG TABLET PO (09:57)
[2021-05-24] MEDS: ACYCLOVIR 400 MG TABLET PO ×3 (09:57→17:36)
[2021-05-24] MEDS: BENZONATATE 100 MG CAPSULE PO (09:58)
[2021-05-24] MEDS: ISOSORBIDE MONONITRATE 30 MG TAB.ER.24H PO (09:58)
[2021-05-24] MEDS: prednisoLONE ACETATE 1% OPHTH 5 ML 2 DROP EACH EYE ×2 (09:59→21:37)
[2021-05-24] MEDS: KCL 40 MEQ/WATER 100 ML 100 ML 25 ML IVPB (10:06)
--- NOTE | 2021-05-24 10:06 | PM.IMPN ---
Progress Note: A&P Assessment and Plan (1) COVID-19: Code(s): U07.1 - COVID-19 Status: Acute Assessment and Plan: Long haul COVID. Subacute COVID-19 infection, previously treated. 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 There is no indication for remdesivir and this patient are unclear. Patient is breathing comfortably on room air. He reports chest tightness. There may be prolong symptoms in patient recover in with COVID-19 pneumonia lasting 4 days to weeks or even months. Will encourage incentive spirometry. Will perform albuterol and ipratropium nebulization. Currently there is no indication for remdesivir and there would be no benefit from steroids. Continue symptomatic management with Tylenol p.r.n. and nebulization. Patient was started on vanco, Zosyn and Zithromax. (2) Pneumonia: Qualifiers: Laterality: unspecified laterality Lung location: unspecified part of lung Pneumonia type: due to unspecified organism Qualified Code(s): J18.9 - Pneumonia, unspecified organism Code(s): J18.9 - Pneumonia, unspecified organism Status: Acute Assessment and Plan: Status post treatment with remdesivir. Currently breathing comfortably on room air. Continue augmentin. Bilateral opacities on chest x-ray. Patient was started on vanco, Zosyn and Zithromax. (3) Multiple myeloma not having achieved remission: Code(s): C90.00 - Multiple myeloma not having achieved remission Status: Acute Assessment and Plan: Status post chemotherapy with bortezomib. (4) Bone metastasis: Code(s): C79.51 - Secondary malignant neoplasm of bone Status: Acute Assessment and Plan: Pain management as stated. (5) Acute diarrhea: Code(s): R19.7 - Diarrhea, unspecified Status: Acute Assessment and Plan: C diff negative Resolved (6) Abnormal cardiac enzyme level: Code(s): R74.8 - Abnormal levels of other serum enzymes Status: Acute Assessment and Plan: Trending down words. Will consult Cardiology for discharge. 2D echo ordered (7) Anemia: Code(s): D64.9 - Anemia, unspecified Status: Acute Assessment and Plan: Patient name [place] be secondary to his multiple myeloma however there is an acute drop in hemoglobin. Plan is to do Hemoccult stool and if needed will consult GI service. Will continue to transfer to as needed for hemoglobin less than 7.1. Repeat CBC in the morning. Additional Plan 05/19/2021 Patient is slightly less symptomatic today. Will continue current plan of care and treatment. Possible discharge in next couple of days. 05/20/2021 Patient is clinically improving. Patient troponin is still high but trending downward. We will consult Cardiology and 2D echo will discharge. If stays okay will go home tomorrow. 05/21/2021 New development is that patient hemoglobin has dropped to 7.1, plan is to transfuse and monitor closely. Cardiology consult noted. CT of the chest was not done because of high creatinine and alert she to add and. With IV hydration patient creatinine has improved will start PE protocol for Iodine allergy and get a CTA done tonight. Patient code status is DNR. Case was discussed with family in detail,agreed with current plan of care and treatment. 05/22/2021 Patient is a with 1 unit of blood, hemoglobin improved to 8.1. Patient cardiac enzymes were also trending downward. Plan is to continue current treatment monitor hemoglobin pain increase activity as tolerated. Possible discharge home in the morning. 05/23/2021 Patient with low-grade fever overnight and weighs slightly tachycardic. Plan is to re-culture and start IV ceftriaxone and Zithromax. Give some IV fluids. Discharge today. Pulmonary consult noted. 05/24/2021 Patient still has low-grade fever but better than yesterday. Patient most likely UTI in addition to his COVID pneumonia. Cultures are pending. Continue with antibiotics an
--- NOTE | 2021-05-24 11:31 | PCRCNOTE ---
Window of time for administration has passed. See next scheduled administration.
--- NOTE | 2021-05-24 12:13 | PCPTNOTE ---
Attempted PT a second time and patient declined again stating he did not feel well. Patient states he feels cold and tired. PT will continue to follow per plan of care.
--- NOTE | 2021-05-24 12:50 | PCNFU ---
Nutrition Follow-Up Complete: Inadequate oral intake related to pneumonia/covid 19 as evidenced by decreased appetite and reported intake of 60% Goal: Meet nutritional needs Pt. to meet estimated nutritional needs. Pt current nutrition is a heart healthy diet. Last recorded weight is 76.5 kg. Recommend re-weighing prior to discharge if needed. Bowel Motility: + BM 05/22/2021 Labs Reviewed: Hgb 8.6. Hct 25.8, Alb 2.5, Na 130, K 3.0 Meds Noted: Lipitor, Xanax, Albuterol, Calcium Carbonate, Lovenox, Neurontin, Heparin Sodium, Imdur, Lidocaine, Atrovent Neb, Lopressor, Mag-Ox, Multivitamin, Vancomycin Hcl, Flomax, Potassium Chloride Skin: No skin breakdown at this time. WNL. Additional Notes: Patient has an okay appetite consuming on average 30% of meals ordered. Not interested in a nutritional supplement at this time. If oral intake does not increase recommend nutritional supplementation to provide pt. with adequate nutrition. Monitor labs, medication, wt, and intake every 5 days
--- NOTE | 2021-05-24 13:04 | PCOTNOTE ---
Per PT, patient has declined therapy twice this date stating he does not feel well. Per PT, patient presented to be lethargic and difficult to arouse, falling back asleep quickly, and unable to be seen. Will continue treatment according to plan of care.
--- NOTE | 2021-05-24 13:37 | PM.PNCARD ---
Progress Note: A&P Assessment and Plan (1) Tachycardia: Code(s): R00.0 - Tachycardia, unspecified Status: Acute Assessment and Plan: This has improved today. Currently in sinus rhythm with a rate in the low 90s. (2) CAD (coronary artery disease): Qualifiers: Associated angina: with unspecified form of angina Coronary Disease-Associated Artery/Lesion type: unspecified vessel or lesion type [place] vs. transplanted heart: [place] heart Qualified Code(s): I25.119 - Atherosclerotic heart disease of [place] coronary artery with unspecified angina pectoris Code(s): I25.10 - Atherosclerotic heart disease of [place] coronary artery without angina pectoris Status: Acute Assessment and Plan: Continue aspirin, statin, metoprolol. DVT dosing of lovenox was been resumed. (3) Hyperlipidemia LDL goal <70: Code(s): E78.5 - Hyperlipidemia, unspecified Status: Acute Assessment and Plan: On statin (4) COVID-19: Code(s): U07.1 - COVID-19 Status: Acute Assessment and Plan: Per hospitalist (5) Chest pain: Code(s): R07.9 - Chest pain, unspecified Status: Acute Assessment and Plan: On isosorbide mononitrate 30 mg daily. (6) Elevated troponin: Code(s): R77.8 - Other specified abnormalities of plasma proteins Status: Acute Assessment and Plan: He has an elevated but down trending troponin since admission (1.45, 0.277, 0.304). He certainly could have had a non ST-elevation myocardial infarction or this may be secondary to underlying illness. Currently denying any chest pain. (7) Renal failure: Code(s): N19 - Unspecified kidney failure Status: Acute Assessment and Plan: His elevated creatinine at admission but it has normalized at this point. Subjective Date/time seen: 05/24/21 13:37 Interval history: 81-year-old admitted with COVID pneumonia Date of service 05/21/2021: Has some intermittent chest pain. Resting comfortably when I 1st entered the room though. Breathing easier than yesterday Date of service 05/22/2021: He still seems to be a bit intermittently confused but overall appears better. Respiratory status is more stable. Denies shortness of breath at rest. No chest pain Date of service 05/24/2021: He says that he was feeling better earlier today but as the day has progressed he is not feeling as well. He is complaining of frequent diarrhea and bowel incontinence. Does not have any complaints of chest pain or shortness of breath today. He is not tachycardic today. Review of Systems Review of Systems: All systems reviewed & are unremarkable except as noted in HPI and below Constitutional: Constitutional: Denies excessive sweating, Denies fatigue, Denies headache(s) and Reports weakness Eyes: Eyes: Denies blurry vision ENT: Reports Normal hearing present, Denies headache(s) and Denies neck pain Cardiovascular: Cardiovascular: Reports chest pain and Reports dyspnea Respiratory: Respiratory: Reports dyspnea Gastrointestinal: Gastrointestinal: Denies abdominal pain Genitourinary: Genitourinary: Denies dysuria Musculoskeletal: Musculoskeletal: Denies neck pain Integumentary/Breasts: Skin/Breast: Denies dry skin Neurologic: Reports Normal hearing present, Denies headache(s) and Reports weakness Psychiatric: Psychiatric: Denies anxiety Endocrine: Endocrine: Denies excessive sweating and Denies fatigue Hematologic/Lymphatic: Hematologic/Lymphatic: Denies easy bleeding Allergic/Immunologic: Allergic/Immunologic: Denies GI upset with certain foods Exam Narrative: Appears stated age Const: General: tired appearing; No in distress HENMT: General nose exam: Normal nares present Eyes: Sclera: sclerae normal Neck: Neck: supple and no JVD Resp: Auscultation: no rales, no rhonchi and diminished lung sounds Cardio: Rate: regular rate Rhythm: regular
[2021-05-24] MEDS: ALBUTEROL SULFATE NEB 2.5 MG/0.5 ML INH 5 MG INHALATION ×2 (14:10→21:21)
[2021-05-24] MEDS: IPRATROPIUM BR 0.02% INH SOLN 0.5 MG/2.5 ML VIAL INHALATION ×2 (14:10→21:21)
[2021-05-24] MEDS: KCL 20 MEQ/SW 100 ML 100 ML 50 MEQ IVPB (14:27)
[2021-05-24] MEDS: LOPERAMIDE HCL 2 MG CAPSULE PO (14:58)
[2021-05-24] MEDS: ENOXAPARIN 40 MG/0.4 ML SYRINGE SUB-Q (21:37)
[2021-05-24] MEDS: TAMSULOSIN HCL 0.4 MG CAPSULE PO (21:37)
[2021-05-25] VITALS (19 sets, daily range): BP systolic 136–137; BP diastolic 79–84; PULSE 76–126; RESP 17–24; TEMP 36.4–38.2; O2SAT 90–93
[2021-05-25] MEDS: ACETAMINOPHEN 325 MG TABLET 650 MG PO ×2 (04:35→16:33)
[2021-05-25] MEDS: PIPERACILLIN/TAZOBACTAM SOD 4.5 GM in SODIUM CHLORIDE 0.9% IV 100 ML 200 ML IVPB ×4 (05:28→23:25)
[2021-05-25] MEDS: GABAPENTIN 300 MG CAPSULE PO ×3 (05:28→22:32)
[2021-05-25] MEDS: CENTRAL LINE FLUSH 10 ML IV PUSH ×3 (05:48→22:32)
[2021-05-25 06:43] LABS: Hematocrit 26.6 % (42.0-52.0); Hemoglobin 8.9 g/dL (14.0-18.0); Immature Platelet Fraction Pct 7.4 % (0.9-11.2); Mean Corpuscular HGB Conc 33.5 g/dl (32-36); Mean Corpuscular Hemoglobin 31.7 pg (26-34); Mean Corpuscular Volume 94.7 fl (80-100); Platelet Count Result 43 k/mm3 (150-375); Red Blood Count 2.81 M/mm3 (4.6-6.20); Red Cell Distribution Width 20.2 % (11.5-14.5); White Blood Count 3.3 K/mm3 (4.5-10.0)
[2021-05-25 06:49] LABS: Estimated CRCL calculation 59 ml/min; Estimated Glomerular Filt Rate > 60
[2021-05-25] MEDS: ALBUTEROL SULFATE NEB 2.5 MG/0.5 ML INH 5 MG INHALATION ×3 (08:46→20:56)
[2021-05-25] MEDS: IPRATROPIUM BR 0.02% INH SOLN 0.5 MG/2.5 ML VIAL INHALATION ×3 (08:47→20:56)
[2021-05-25] MEDS: DEXTROSE 5%/0.9% SOD CHL 1,000 ML 125 ML IV CONT (09:25)
[2021-05-25] MEDS: ACYCLOVIR 400 MG TABLET PO ×3 (09:29→16:32)
[2021-05-25] MEDS: METOPROLOL TARTRATE 50 MG TAB PO ×2 (09:29→22:19)
[2021-05-25] MEDS: ATORVASTATIN 40 MG TABLET PO (09:30)
[2021-05-25] MEDS: LIDOCAINE 5% PATCH 1 PATCH TOPICAL (09:30)
[2021-05-25] MEDS: ISOSORBIDE MONONITRATE 30 MG TAB.ER.24H PO (09:30)
[2021-05-25] MEDS: ASPIRIN 81 MG CHEWABLE TABLET PO (09:31)
[2021-05-25] MEDS: MAGNESIUM OXIDE 400 MG TABLET PO (09:31)
[2021-05-25] MEDS: prednisoLONE ACETATE 1% OPHTH 5 ML 2 DROP EACH EYE ×2 (09:32→22:19)
[2021-05-25] MEDS: THERAPEUTIC MULTIVITAMINS/MINERALS TAB (*BKC) 1 TABLET PO (09:32)
[2021-05-25] MEDS: PANTOPRAZOLE SODIUM IV 40 MG VIAL IV PUSH (09:32)
[2021-05-25] MEDS: LIDOCAINE/PRILOCAINE CREAM 2.5-2.5% TUBE 1 EACH TOPICAL (09:35)
[2021-05-25 10:24] LABS: Alanine Aminotransferase 24 U/L (4-50); Albumin Level 2.3 g/dL (3.5-5.1); Alkaline Phosphatase 64 U/L (38-126); Anion Gap 4 mmol/L (8-16); Aspartate Amino Transferase 33 U/L (17-59); Bilirubin,Total 0.6 mg/dL (0.2-1.3); Blood Urea Nitrogen 8 mg/dL (9-20); Calcium 7.5 mg/dL (8.4-10.2); Carbon Dioxide 24 mmol/L (22-30); Chloride 104 mmol/L (98-107); Glucose 139 mg/dL (65-110); Potassium 3.5 mmol/L (3.4-5.0); Sodium 132 mmol/L (137-145)
--- NOTE | 2021-05-25 11:08 | PM.PNCARD ---
Progress Note: A&P Assessment and Plan (1) Tachycardia: Code(s): R00.0 - Tachycardia, unspecified <Tila Dias APN-C - Last Filed: 05/25/21 11:17> Status: Acute <Tila Dias APN-C - Last Filed: 05/25/21 11:17> Assessment and Plan: This has improved today. Currently in sinus rhythm with a rate in the low 90s. <NEHEMIAH LeC - Last Filed: 05/25/21 11:17> (2) CAD (coronary artery disease): Qualifiers: Associated angina: with unspecified form of angina Coronary Disease-Associated Artery/Lesion type: unspecified vessel or lesion type [place] vs. transplanted heart: [place] heart Qualified Code(s): I25.119 - Atherosclerotic heart disease of [place] coronary artery with unspecified angina pectoris <Tila Dias APN-C - Last Filed: 05/25/21 11:17> Code(s): I25.10 - Atherosclerotic heart disease of [place] coronary artery without angina pectoris <Tila Dias APN-C - Last Filed: 05/25/21 11:17> Status: Acute <Tila Dias APN-C - Last Filed: 05/25/21 11:17> Assessment and Plan: Continue aspirin, statin, metoprolol. DVT dosing of lovenox was been resumed. <Tila Dias APN-C - Last Filed: 05/25/21 11:17> (3) Hyperlipidemia LDL goal <70: Code(s): E78.5 - Hyperlipidemia, unspecified <Tila Dias APN-C - Last Filed: 05/25/21 11:17> Status: Acute <Tila Dias APN-C - Last Filed: 05/25/21 11:17> Assessment and Plan: On statin <NEHEMIAH LeC - Last Filed: 05/25/21 11:17> (4) COVID-19: Code(s): U07.1 - COVID-19 <NEHEMIAH LeC - Last Filed: 05/25/21 11:17> Status: Acute <Tila HernandezNEHEMIAH zepedaC - Last Filed: 05/25/21 11:17> Assessment and Plan: Per hospitalist <Tila A. LarissaMELIDA zepeda - Last Filed: 05/25/21 11:17> (5) Chest pain: Code(s): R07.9 - Chest pain, unspecified <Tila Abhijit HernandezNEHEMIAH zepedaC - Last Filed: 05/25/21 11:17> Status: Acute <Tila HernandezNEREYDA zepeda-C - Last Filed: 05/25/21 11:17> Assessment and Plan: On isosorbide mononitrate 30 mg daily. <Tila Abhijit MELIDA Dias - Last Filed: 05/25/21 11:17> (6) Elevated troponin: Code(s): R77.8 - Other specified abnormalities of plasma proteins <NEHEMIAH LeC - Last Filed: 05/25/21 11:17> Status: Acute <Tila HernandezNEREYDA zepeda-C - Last Filed: 05/25/21 11:17> Assessment and Plan: He has an elevated but down trending troponin since admission (1.45, 0.277, 0.304). He certainly could have had a non ST-elevation myocardial infarction or this may be secondary to underlying illness. Has intermittent atypical chest pain but does not have any complaints of chest pain currently. Continue conservative management with medical management as above. cardiology will sign off. Please not hesitate to contact us if we can be of assistance in the care of this patient any way. <Tila Abhijit HernandezNEHEMIAH zepedaC - Last Filed: 05/25/21 11:17> (7) Renal failure: Code(s): N19 - Unspecified kidney failure <MELIDA Le - Last Filed: 05/25/21 11:17> Status: Acute <Tila Abhijit HernandezNEREYDA zepeda-C - Last Filed: 05/25/21 11:17> Assessment and Plan: His elevated creatinine at admission but it has normalized at this point. <MELIDA Le - Last Filed: 05/25/21 11:17> Additional Plan <MELIDA Le - Last Filed: 05/25/21 11:17> I have seen and examined the patient and agree with the assessment and plan of the nurse practitioner. at this time sinus tachycardia has much improved. Patient is here with COVID pneumonia that was a good nose April was . He did have elevated troponins 1.45 and trended to 0.3. At sometime when patient recovers he will require down the line some workup to be done. arrange for follow-up as an outpatient. sign off now <Michael Olivarez MD - Last Filed: 05/25
--- NOTE | 2021-05-25 11:09 | P.PNIM_ITS ---
Progress Note: A&P Assessment and Plan (1) COVID-19: Code(s): U07.1 - COVID-19 Status: Acute Assessment and Plan: Long haul COVID. Subacute COVID-19 infection, previously treated. 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 There is no indication for remdesivir and this patient are unclear. Patient is breathing comfortably on room air. He reports chest tightness. There may be prolong symptoms in patient recover in with COVID-19 pneumonia lasting 4 days to weeks or even months. Will encourage incentive spirometry. Will perform albuterol and ipratropium nebulization. Currently there is no indication for remdesivir and there would be no benefit from steroids. Continue symptomatic management with Tylenol p.r.n. and nebulization. Patient was started on vanco, Zosyn and Zithromax. (2) Pneumonia: Qualifiers: Laterality: unspecified laterality Lung location: unspecified part of lung Pneumonia type: due to unspecified organism Qualified Code(s): J18.9 - Pneumonia, unspecified organism Code(s): J18.9 - Pneumonia, unspecified organism Status: Acute Assessment and Plan: Status post treatment with remdesivir. Currently breathing comfortably on room air. Continue augmentin. Bilateral opacities on chest x-ray. Patient was started on vanco, Zosyn and Zithromax. (3) Multiple myeloma not having achieved remission: Code(s): C90.00 - Multiple myeloma not having achieved remission Status: Acute Assessment and Plan: Status post chemotherapy with bortezomib. (4) Bone metastasis: Code(s): C79.51 - Secondary malignant neoplasm of bone Status: Acute Assessment and Plan: Pain management as stated. (5) Acute diarrhea: Code(s): R19.7 - Diarrhea, unspecified Status: Acute Assessment and Plan: C diff negative Resolved (6) Abnormal cardiac enzyme level: Code(s): R74.8 - Abnormal levels of other serum enzymes Status: Acute Assessment and Plan: Trending down words. Will consult Cardiology for discharge. 2D echo ordered (7) Anemia: Code(s): D64.9 - Anemia, unspecified Status: Acute Assessment and Plan: Patient name [place] be secondary to his multiple myeloma however there is an acute drop in hemoglobin. Plan is to do Hemoccult stool and if needed will consult GI service. Will continue to transfer to as needed for hemoglobin less than 7.1. Repeat CBC in the morning. Additional Plan 05/19/2021 Patient is slightly less symptomatic today. Will continue current plan of care and treatment. Possible discharge in next couple of days. 05/20/2021 Patient is clinically improving. Patient troponin is still high but trending downward. We will consult Cardiology and 2D echo will discharge. If stays okay will go home tomorrow. 05/21/2021 New development is that patient hemoglobin has dropped to 7.1, plan is to transfuse and monitor closely. Cardiology consult noted. CT of the chest was not done because of high creatinine and alert she to add and. With IV hydration patient creatinine has improved will start PE protocol for Iodine allergy and get a CTA done tonight. Patient code status is DNR. Case was discussed with family in detail,agreed with current plan of care and treatment. 05/22/2021 Patient is a with 1 unit of blood, hemoglobin improved to 8.1. Patient cardiac enzymes were also trending downward. Plan is to continue current treatment monitor hemoglobin pain increase activity as tolerated. Possible discharge home in the morning. 05/23/2021 Patient with low-grade fever overnight and devin
--- NOTE | 2021-05-25 13:35 | PCOTNOTE ---
On 05/25/21, the student, Yomaira Edmonds, provided care and completed [facility] documentation on this patient. I have reviewed the student's documentation and agree with the findings.
[2021-05-25] MEDS: ALPRAZolam (*CRX) 0.25 MG TABLET PO (16:33)
[2021-05-25] MEDS: TAMSULOSIN HCL 0.4 MG CAPSULE PO (22:19)
[2021-05-25] MEDS: ENOXAPARIN 40 MG/0.4 ML SYRINGE SUB-Q (22:32)
[2021-05-26] VITALS (20 sets, daily range): BP systolic 115–149; BP diastolic 79–96; PULSE 84–138; RESP 16–36; TEMP 35.9–36.6; O2SAT 85–100
[2021-05-26] MEDS: ALPRAZolam (*CRX) 0.25 MG TABLET PO (01:23)
[2021-05-26] MEDS: IPRATROPIUM BR 0.02% INH SOLN 0.5 MG/2.5 ML VIAL INHALATION ×4 (02:06→19:37)
[2021-05-26] MEDS: ALBUTEROL SULFATE NEB 2.5 MG/0.5 ML INH 5 MG INHALATION ×2 (02:06→08:26)
[2021-05-26] MEDS: DEXTROSE 5%/0.9% SOD CHL 1,000 ML 50 ML IV CONT ×2 (04:49→21:50)
[2021-05-26] MEDS: PIPERACILLIN/TAZOBACTAM SOD 4.5 GM in SODIUM CHLORIDE 0.9% IV 100 ML 200 ML IVPB (05:48)
[2021-05-26] MEDS: GABAPENTIN 300 MG CAPSULE PO ×3 (05:49→21:06)
[2021-05-26] MEDS: CENTRAL LINE FLUSH 10 ML IV PUSH ×2 (05:49→21:49)
[2021-05-26] MEDS: FUROSEMIDE INJ 40 MG/4 ML VIAL IV PUSH (07:58)
--- NOTE | 2021-05-26 09:44 | PCRCNOTE ---
HOME O2 EVAL IS ON HOLD. PER RN, PT IS CONFUSED, TACHYCARDIC, AND SOB. NO D/C ANTICIPATED TODAY. WILL CALL IF THIS STATUS CHANGES.
[2021-05-26] MEDS: ACYCLOVIR 400 MG TABLET PO ×2 (09:59→13:50)
[2021-05-26] MEDS: LIDOCAINE 5% PATCH 1 PATCH TOPICAL (10:00)
[2021-05-26] MEDS: METOPROLOL TARTRATE 50 MG TAB PO ×2 (10:00→21:07)
[2021-05-26] MEDS: MAGNESIUM OXIDE 400 MG TABLET PO (10:00)
[2021-05-26] MEDS: ATORVASTATIN 40 MG TABLET PO (10:00)
[2021-05-26] MEDS: ASPIRIN 81 MG CHEWABLE TABLET PO (10:01)
[2021-05-26] MEDS: ISOSORBIDE MONONITRATE 30 MG TAB.ER.24H PO (10:01)
[2021-05-26] MEDS: THERAPEUTIC MULTIVITAMINS/MINERALS TAB (*BKC) 1 TABLET PO (10:01)
[2021-05-26] MEDS: prednisoLONE ACETATE 1% OPHTH 5 ML 2 DROP EACH EYE ×2 (10:02→21:49)
[2021-05-26] MEDS: PANTOPRAZOLE SODIUM IV 40 MG VIAL IV PUSH (10:02)
--- NOTE | 2021-05-26 10:49 | PCOTNOTE ---
Pts. HR 130-140 while laying supine without activity, pt. inappropriate for therapy to ensure pt. safety. Continue plan of care as appropriate.
--- NOTE | 2021-05-26 11:00 | PCPTNOTE ---
The patient treatment was not able to be completed today due to patient having increased confusion, increased HR from 120s-140s bpm at rest and increased RR. Patient oriented to self only. Will plan to continue treatment per plan of care.
[2021-05-26] MEDS: ALBUTEROL SULFATE NEB 2.5 MG/0.5 ML INH INHALATION (12:45)
[2021-05-26] MEDS: PIPERACILLIN/TAZOBACTAM SOD 4.5 GM in SODIUM CHLORIDE 0.9% IV 100 ML IVPB ×2 (13:49→18:43)
[2021-05-26] MEDS: methylPREDNISolone SOD SUCC 125 MG VIAL 80 MG IV PUSH (13:50)
[2021-05-26 16:47] LABS: Vancomycin Trough 8.9 ug/mL (10.0-20.0)
[2021-05-26] MEDS: FLUTICASONE/SALMETEROL 115-21 MCG INHALER 1 PUFF 2 PUFF INHALATION (19:37)
[2021-05-26] MEDS: TAMSULOSIN HCL 0.4 MG CAPSULE PO (21:06)
[2021-05-26] MEDS: ENOXAPARIN 40 MG/0.4 ML SYRINGE SUB-Q (21:06)
[2021-05-27] VITALS (13 sets, daily range): BP systolic 105–142; BP diastolic 57–94; PULSE 78–138; RESP 16–28; TEMP 36.1–37.4; O2SAT 90–95
[2021-05-27] MEDS: PIPERACILLIN/TAZOBACTAM SOD 4.5 GM in SODIUM CHLORIDE 0.9% IV 100 ML IVPB ×4 (01:04→17:29)
[2021-05-27] MEDS: IPRATROPIUM BR 0.02% INH SOLN 0.5 MG/2.5 ML VIAL INHALATION ×3 (02:25→20:27)
[2021-05-27] MEDS: GABAPENTIN 300 MG CAPSULE PO (05:54)
[2021-05-27] MEDS: CENTRAL LINE FLUSH 10 ML IV PUSH ×3 (05:55→20:47)
[2021-05-27 06:01] LABS: Basophils Percent Auto 0.3 % (0.2-1.2); Hematocrit 26.5 % (42.0-52.0); Hemoglobin 8.7 g/dL (14.0-18.0); Immature Granulocyte Absolute 0.05 K/mm3 (0.00-0.031); Immature Granulocyte Percent A 1.4 % (0-0.5); Immature Platelet Fraction Pct 12.7 % (0.9-11.2); Lymphocytes Absolute Auto 0.27 K/mm3 (0.9-3.2); Lymphocytes Percent Auto 7.3 % (18.3-44.2); Mean Corpuscular HGB Conc 32.8 g/dl (32-36); Mean Corpuscular Volume 94.3 fl (80-100); Monocytes Absolute Auto 0.3 K/mm3 (0.1-0.6); Monocytes Percent Auto 8.1 % (2.6-8.5); Neutrophils Absolute Auto 3.1 K/mm3 (1.3-6.7); Neutrophils Percent Auto 82.9 % (45.5-73.1); Platelet Count Result 38 k/mm3 (150-375); Red Blood Count 2.81 M/mm3 (4.6-6.20); White Blood Count 3.7 K/mm3 (4.5-10.0)
[2021-05-27 06:05] LABS: Alanine Aminotransferase 31 U/L (4-50); Albumin Level 2.7 g/dL (3.5-5.1); Alkaline Phosphatase 71 U/L (38-126); Anion Gap 4 mmol/L (8-16); Aspartate Amino Transferase 87 U/L (17-59); Bilirubin,Total 0.8 mg/dL (0.2-1.3); Blood Urea Nitrogen 14 mg/dL (9-20); Calcium 7.7 mg/dL (8.4-10.2); Carbon Dioxide 27 mmol/L (22-30); Chloride 105 mmol/L (98-107); Estimated CRCL calculation 42 ml/min; Estimated Glomerular Filt Rate 53; Glucose 212 mg/dL (65-110); Potassium 3.3 mmol/L (3.4-5.0); Sodium 136 mmol/L (137-145)
[2021-05-27 06:27] LABS: Ovalocytes 1+ (NORMAL)
[2021-05-27 06:28] LABS: Macrocytosis 1+ (NORMAL); Platelet Estimate Decreased (Adequate)
[2021-05-27] MEDS: LIDOCAINE 5% PATCH 1 PATCH TOPICAL (08:46)
[2021-05-27] MEDS: PANTOPRAZOLE SODIUM IV 40 MG VIAL IV PUSH (08:48)
[2021-05-27] MEDS: prednisoLONE ACETATE 1% OPHTH 5 ML 2 DROP EACH EYE ×2 (08:49→20:47)
[2021-05-27] MEDS: ISOSORBIDE MONONITRATE 30 MG TAB.ER.24H PO (08:50)
[2021-05-27] MEDS: POTASSIUM CHLORIDE 20 MEQ TABLET.ER PO (08:50)
[2021-05-27] MEDS: MAGNESIUM OXIDE 400 MG TABLET PO (08:50)
[2021-05-27] MEDS: ATORVASTATIN 40 MG TABLET PO (08:51)
[2021-05-27] MEDS: FUROSEMIDE 40 MG TABLET PO (08:51)
[2021-05-27] MEDS: ASPIRIN 81 MG CHEWABLE TABLET PO (08:51)
[2021-05-27] MEDS: THERAPEUTIC MULTIVITAMINS/MINERALS TAB (*BKC) 1 TABLET PO (08:51)
[2021-05-27] MEDS: METOPROLOL TARTRATE 50 MG TAB PO ×2 (08:52→20:47)
[2021-05-27] MEDS: FLUTICASONE/SALMETEROL 115-21 MCG INHALER 1 PUFF 2 PUFF INHALATION ×2 (10:35→20:28)
[2021-05-27] MEDS: POTASSIUM CHLORIDE 20 MEQ PACKET (FOR LIQUID) 40 MEQ PO (11:18)
[2021-05-27] MEDS: FUROSEMIDE INJ 40 MG/4 ML VIAL 20 MG IV PUSH (11:18)
--- NOTE | 2021-05-27 16:03 | PCRCNOTE ---
Window of time for administration has passed. See next scheduled administration.
[2021-05-27] MEDS: MONTELUKAST SODIUM 10 MG TABLET PO (20:47)
[2021-05-27] MEDS: TAMSULOSIN HCL 0.4 MG CAPSULE PO (20:47)
[2021-05-27] MEDS: ENOXAPARIN 40 MG/0.4 ML SYRINGE SUB-Q (20:47)
--- NOTE | 2021-05-27 23:22 | PCRCNOTE ---
Found patient on room air with an SPO2 of 60% and tachypneic and a pulse rate of 128. Placed back on nasal cannula but patient keeps trying to take it off. RN informed and she confirmed he keeps removing cannula. Neb given. Placed back on nasal cannula at 6 lpm. SPO2 up to 92% and pulse down to 114. Informed RN that if he keeps removing his oxygenation device he may need a sitter.
[2021-05-28] MEDS: PIPERACILLIN/TAZOBACTAM SOD 4.5 GM in SODIUM CHLORIDE 0.9% IV 100 ML IVPB (00:17)
--- NOTE | 2021-05-29 14:16 | PM.DDS ---
Discharge Summary Date and Time Date of : 05/28/21 Time of : 01:04 Provider Pronounced By: Ana Maria Gill Rn/Filomena Fonseca Rn Probable Cause of Probable Cause of : COVID pneumonia Summary Hospital Course: Patient is 81 years old male with history of multiple myeloma was admitted complains of having shortness of breath. Patient chest x-ray confirmed patient has COVID pneumonia. Patient was given treatment but did not get better. Patient on 05/28/2021, family notified. Additional Data Confirmation of as documented by pronouncing clinician: Pupillary Reflex, Palpable Pulses, Response to Stimuli, Heart Tones and Breath Sounds Name of Provider Notified: Hopen Time Provider Notified: 01:04 Family Requests Autopsy: No [employer] Supervisor Notified: Yes Date [facility] Notified of : 05/28/21 Time [facility] Notified of : 01:20
== END 2021-05-28 01:04 | disposition expired | DRG 177 ==
LOC: ANHED 05-16 06:45 → ANH3MEDSUR 05-16 07:05
PROVIDERS: Internal Medicine; Internal Medicine Cardiovascular Disease; Nurse Practitioner; Admitting Provider Internal Medicine; Emergency Provider Emergency Medicine; PCP Student in an Organized Health Care Education/Training Program; Visit Provider Internal Medicine
DX: U07.1 COVID-19 (principal); J12.82 Pneumonia due to coronavirus disease 2019; C90.00 Multiple myeloma not having achieved remission; C79.51 Secondary malignant neoplasm of bone; R00.0 Tachycardia, unspecified; R77.8 Other specified abnormalities of plasma proteins; K21.9 Gastro-esophageal reflux disease without esophagitis; N19 Unspecified kidney failure; E78.5 Hyperlipidemia, unspecified; I25.119 Atherosclerotic heart disease of native coronary artery with unspecified angina pectoris; D64.9 Anemia, unspecified; Z66 Do not resuscitate; Z79.82 Long term (current) use of aspirin; Z79.899 Other long term (current) drug therapy; Z95.5 Presence of coronary angioplasty implant and graft
CPT/HCPCS: 36415; 36430; 36600; 70450; 71045; 71275; 80048; 80053; 80202; 81001; 82274; 82565; 82805; 83605; 84484; 85014; 85018; 85025; 85027; 85055; 86850; 86900; 86901; 86920; 87040; 87086; 87324; 87804; 93005; 93306; 93970; 94640; 96361; 96365; 97110; 97116; 97161; 97165; 97530; 97535; 99285; A9270; C9113; G0378; J0360; J0456; J0692; J0696; J1100; J1200; J1642; J1644; J1650; J1940; J2270; J2543; J2930; J3370; J3480; J7030; J7042; J7050; J7060; J7120; J7512; P9016; Q9967